=== PATIENT | female | born 1980 | race African-American/Black ===

== ENCOUNTER 2018-04-08 09:01 | Emergency (ER) | payer BC ==
[2018-04-08] MEDS ORDERED: HYDROCODONE/APAP 10/325 TAB ONE (09:47)
[2018-04-08 12:24] LABS: Urine Blood NEGATIVE (NEG); Urine Glucose NEGATIVE (NEG); Urine Protein NEGATIVE (NEG)
--- NOTE | 2018-04-08 12:24 | RAD REPORT ---
EXAM DESCRIPTION: RAD - Lumbar Spine 3 Views - 04/08/2018 11:30 am CLINICAL HISTORY: fall;Pain Radiculopathy COMPARISON: No comparisons FINDINGS: Vertebral body heights appear maintained. No compression fracture noted. Disc spaces are m aintained. No spondylolysis or spondylolisthesis. IMPRESSION: Negative study.
--- NOTE | 2018-04-08 12:25 | RAD REPORT ---
EXAM DESCRIPTION: RAD - Sacrum And Coccyx - 04/08/2018 11:28 am CLINICAL HISTORY: fall;Pain COMPARISON: Lumbar Spine 3 Views dated 04/08/2018 FINDINGS: Slight cortical regularity seen in the inferior most aspect of the sacrum, suspicious for a fracture. Displacement is minimal. No aggressive bone lesion. IMPRESSION: Minimally displaced inferior sacral fracture suspected.
--- NOTE | 2018-04-08 12:28 | EDPHYS ---
Physician Documentation [facility] Name: Vernon Rodgers Age: 38 yrs Sex: Female : 1980 Arrival Date: 04/08/2018 Time: 09:04 Bed 10 Private MD: ED Physician Steve Arguello HPI: 04/08 10:00 This 38 yrs old Black Female presents to ER via Ambulatory with complaints of Fall pm1 Injury. 10:00 Details of fall: The patient fell from an upright position, while walking. Onset: The pm1 symptoms/episode began/occurred this morning. Associated injuries: The patient sustained coccyx, pain. Severity of symptoms: in the emergency department the symptoms are unchanged. The patient has not experienced similar symptoms in the past. Patient walking down stairs and slipped, landing on buttocks. presenting with pain to coccyx and sacral area. No headache, head injury, or neck pain. 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 - Social history:: Smoking status: Patient uses tobacco products, smokes one-half pack cigarettes per day, Patient/guardian denies using alcohol. - Immunization history: Last tetanus immunization: - up to date. - Ebola Screening: : Patient negative for fever greater than or equal to 101.5 degrees Fahrenheit, and additional compatible Ebola Virus Disease symptoms Patient denies exposure to infectious person Patient denies travel to an Ebola-affected area in the 21 days before illness onset. ROS: 10:00 Constitutional: Negative for fever, chills, and weight loss, Eyes: Negative for injury, pm1 pain, redness, and discharge, ENT: Negative for injury, pain, and discharge, Neck: Negative for injury, pain, and swelling, Cardiovascular: Negative for chest pain, palpitations, and edema, Respiratory: Negative for shortness of breath, cough, wheezing, and pleuritic chest pain, Abdomen/GI: Negative for abdominal pain, nausea, vomiting, diarrhea, and constipation. 10:00 : Negative for injury, bleeding, discharge, and swelling, MS/Extremity: Negative for injury and deformity, Skin: Negative for injury, rash, and discoloration, Neuro: Negative for headache, weakness, numbness, tingling, and seizure. 10:00 Back: Positive for of the sacrum. Exam: 10:00 Constitutional: This is a well developed, well nourished patient who is awake, alert, pm1 and in no acute distress. Head/Face: Normocephalic, atraumatic. Eyes: Pupils equal round and reactive to light, extra-ocular motions intact. Lids and lashes normal. Conjunctiva and sclera are non-icteric and not injected. Cornea within normal limits. Periorbital areas with no swelling, redness, or edema. ENT: Nares patent. No nasal discharge, no septal abnormalities noted. Tympanic membranes are normal and external auditory canals are clear. Oropharynx with no redness, swelling, or masses, exudates, or evidence of obstruction, uvula midline. Mucous membranes moist. Neck: Trachea midline, no thyromegaly or masses palpated, and no cervical lymphadenopathy. Supple, full range of motion without nuchal rigidity, or vertebral point tenderness. No Meningismus. Chest/axilla: Normal chest wall appearance and motion. Nontender with no deformity. No lesions are appreciated. Cardiovascular: Regular rate and rhythm with a normal S1 and S2. No gallops, murmurs, or rubs. Normal PMI, no JVD. No pulse deficits. Respiratory: Lungs have equal breath sounds bilaterally, clear to auscultation and percussion. No rales, rhonchi or wheezes noted. No increased work of breathing, no retractions or nasal flaring. Abdomen/GI: Soft, non-tender, with normal bowel sounds. No distension or tympany. No guarding or rebound. No evidence of tenderness throughout. 10:00 Skin: Warm, dry with normal turgor. Normal color with no rashes, no lesions, and no evidence of cellulitis. MS/ Extremity: Pulses equal, no cyanosis. Neurovascular intact. Full, normal range of motion. 10:00 Back: pain, that is mild, of the sacrum, ROM is normal, normal spinal alignment noted. 10:00 Neuro: Orientation: is normal, Motor: moves all fours. Vital Signs: 09:18 BP 121 / 81; Pulse 66; Resp 18; Temp 97.9(TE); Pulse Ox 100% on R/A; Weight 93.44 kg; hj Height 5 ft. 5 in. (165.10 cm); Pain 10/; 09:22 BP 120 / 80; Pulse 66; Resp 18; Temp 97.9(TE); Pulse Ox 100% on R/A; Weight 93.44 kg; hj Height 5 ft. 5 in. (165.10 cm); Pain 10/10; 12:59 BP 121 / 85; Pulse 67; Resp 18; Pulse Ox 100% on R/A; hj 09:22 Body Mass Index 34.28 (93.44 kg, 165.10 cm) [place] Coma Score: 09:18 Eye Response: spontaneous(4). Verbal Response: oriented(5). Motor Response: obeys hj commands(6). Total: 15. Trauma Score (Adult): 09:18 Eye Response: spontaneous(1); Verbal Response: oriented(1); Motor Response: obeys hj commands(2); Systolic BP: > 89 mm Hg(4); Respiratory Rate: 10 to 29 per min(4); [place] Score: 15; Trauma Score: 12 MDM: 09:35 Patient medically screened. pm1 12:26 Data reviewed: vital signs. Data interpreted: Pulse oximetry: on room air is 100 %. pm1 Interpretation: normal. Counseling: I had a detailed discussion with the patient and/or guardian regarding: the historical points, exam findings, and any diagnostic results supporting the discharge/admit diagnosis, radiology results, the need for outpatient follow up, to return to the emergency department if symptoms worsen or persist or if there are any questions or concerns that arise at home. 04/08 10:46 Order name: Urine Dipstick--Ancillary (enter results); Complete Time: 12:25 iw 04/08 10:46 Order name: Urine --Ancillary (enter results); Complete Time: 12:25 iw 04/08 09:40 Order name: Lumbar Spine (3 Views) XRAY; Complete Time: 12:25 pm1 04/08 09:40 Order name: Sacrum And Coccyx XRAY; Complete Time: 12:26 pm1 04/08 10:35 Order name: Urine Dipstick-Ancillary (obtain specimen); Complete Time: 10:42 pm1 04/08 10:35 Order name: Urine Test (obtain specimen); Complete Time: 10:42 pm1 Administered Medications: 09:40 Drug: [place] 10 mg-325 mg 1 tabs Route: PO; hj 09:47 Follow up: Response: No adverse reaction; Pain is decreased hj Disposition: 04/09 06:51 Co-signature as Attending Physician, Steve Arguello MD I agree with the assessment and laura plan of care. Disposition: 04/08/18 12:27 Discharged to Home. Impression: Fracture of sacrum. - Condition is Stable. - Discharge Instructions: Tailbone Injury. - Prescriptions for Tylenol- Codeine #3 300-30 mg Oral Tablet - take 2 tablets by ORAL route every 6 hours As needed; 20 tablet. - Work release form, Medication Reconciliation Form, Thank You Letter, Prescription Opioid Use form. - Follow up: Emergency Department; When: As needed; Reason: Worsening of condition. Follow up: Private Physician; When: 2 - 3 days; Reason: Recheck today's complaints, Continuance of care, Re-evaluation by your physician. - Problem is new. - Symptoms have improved. Signatures: Dispatcher [employer] EDSteve Stovall MD MD cha Joaquin, Henry, RN RN Raj Malin, MEAGHAN MUTUAL FUND MANAGER pm1 Corrections: (The following items were deleted from the chart) 04/08 13:00 12:27 04/08/2018 12:27 Discharged to Home. Impression: Fracture of sacrum. Condition is hj Stable. Forms are Medication Reconciliation Form, Thank You Letter, Antibiotic Education, Prescription Opioid Use. Follow up: Emergency Department; When: As needed; Reason: Worsening of condition. Follow up: Private Physician; When: 2 - 3 days; Reason: Recheck today's complaints, Continuance of care, Re-evaluation by your physician. Problem is new. Symptoms have improved. pm1
--- NOTE | 2018-04-08 12:28 | ER ---
Nurse's Notes [facility] Name: Vernon Rodgers Age: 38 yrs Sex: Female : 1980 Arrival Date: 04/08/2018 Time: 09:04 Bed 10 Private MD: Diagnosis: Fracture of sacrum Presentation: 04/08 09:15 Presenting complaint: Patient states: i fell down from stairs, 3 steps, and hurt my lower back and tail bone area denies hitting head and LOC; pain is 9/10;. Transition of care: patient was not received from another setting of care. Onset of symptoms was April 08, 2018. Risk Assessment: Do you want to hurt yourself or someone else? Patient reports no desire to harm self or others. Initial Sepsis Screen: Does the patient meet any 2 criteria? No. Patient's initial sepsis screen is negative. Does the patient have a suspected source of infection? No. Patient's initial sepsis screen is negative. Care prior to arrival: None. 09:15 Method Of Arrival: Ambulatory 09:15 Acuity: ULISES 4 09:21 Mechanism of Injury: Fall down 3 steps. Trauma event details: Injury occurred in the [facility], Injury occurred: at home. Injury occurred: April 08, 2018 Injury occurred at: 06:00. Triage Assessment: 09:17 General: Appears in no apparent distress. uncomfortable, Behavior is calm, cooperative, hj appropriate for age. Pain: Complains of pain in gluteal cleft, left lower back and right lower back. 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 - Social history:: Smoking status: Patient uses tobacco products, smokes one-half pack cigarettes per day, Patient/guardian denies using alcohol. - Immunization history: Last tetanus immunization: - up to date. - Ebola Screening: : Patient negative for fever greater than or equal to 101.5 degrees Fahrenheit, and additional compatible Ebola Virus Disease symptoms Patient denies exposure to infectious person Patient denies travel to an Ebola-affected area in the 21 days before illness onset. Screenin:18 Abuse screen: Denies threats or abuse. Denies injuries from another. Nutritional hj screening: No deficits noted. Tuberculosis screening: No symptoms or risk factors identified. Fall Risk None identified. Primary Survey: 09:18 A: Airway: patent, No supplemental oxygen in use on arrival. Oral cavity: clear, gag hj reflex present, Trachea midline. Breathing/Chest: Respiratory pattern: regular, Respiratory effort: spontaneous, unlabored, Breath sounds: clear, bilaterally. Chest inspection: symmetrical rise and fall of the chest. Circulation: Cardiac rhythm: sinus rhythm Heart tones present. Pulses: palpable right radial artery and left radial artery. Skin color: pink, Skin temperature: warm, dry. Disability Alert. 09:21 Reassessment Airway Airway Patent Oxygen No O2 Oral cavity Clear +Gag reflex Trachea hj Midline Breathing/Chest Respiratory pattern Regular Respiratory effort Spontaneous Unlabored Breath sounds Clear Chest inspection Symmetrical Circulation Heart rhythm Sinus rhythm Heart tones Present Pulses Palpable Color [place] Temperature Warm Dry Disability Alert. Secondary Survey: 09:47 HEENT: No deficits noted. Gastrointestinal: No deficits noted. : No signs and/or hj symptoms were reported regarding the genitourinary system. Musculoskeletal: Reports pain in buttocks and right lower back and left lower back and gluteal cleft. Injury Description: fall. Assessment: 09:48 Reassessment: see triage for assessment;. hj 09:48 Reassessment: provided with warm blanket for comfort;. hj 10:45 Reassessment: UPT negative, fire range technician notified;. hj 10:45 Reassessment: Patient appears in no apparent distress at this time. Patient and/or iw family updated on plan of care and expected duration. Pain level reassessed. Patient is alert, oriented x 3, equal unlabored respirations, skin warm/dry/pink. Vital Signs: 09:18 BP 121 / 81; Pulse 66; Resp 18; Temp 97.9(TE); Pulse Ox 100% on R/A; Weight 93.44 kg; hj Height 5 ft. 5 in. (165.10 cm); Pain 10/10; 09:22 BP 120 / 80; Pulse 66; Resp 18; Temp 97.9(TE); Pulse Ox 100% on R/A; Weight 93.44 kg; hj Height 5 ft. 5 in. (165.10 cm); Pain 10/10; 12:59 BP 121 / 85; Pulse 67; Resp 18; Pulse Ox 100% on R/A; hj 09:22 Body Mass Index 34.28 (93.44 kg, 165.10 cm) hj [place] Coma Score: 09:18 Eye Response: spontaneous(4). Verbal Response: oriented(5). Motor Response: obeys hj commands(6). Total: 15. Trauma Score (Adult): 09:18 Eye Response: spontaneous(1); Verbal Response: oriented(1); Motor Response: obeys hj commands(2); Systolic BP: > 89 mm Hg(4); Respiratory Rate: 10 to 29 per min(4); [place] Score: 15; Trauma Score: 12 ED Course: 09:04 Patient arrived in ED. rg4 09:17 Triage completed. hj 09:21 Arm band placed on right wrist. hj 09:21 Patient maintains SpO2 saturation greater than 95% on room air. hj 09:22 Thermoregulation: warm blanket given to patient. hj 09:23 Patient has correct armband on for positive identification. Bed in low position. Call hj light in reach. Side rails up X 1. 09:25 Raj Fox NP is PHCP. pm1 09:25 Steve Arguello MD is Attending Physician. pm1 09:40 Tavo Corrales RN is Primary Nurse. hj 10:13 Radiology exam delayed due to test not completed at this time. jr1 11:25 X-ray completed. Patient tolerated procedure well. Patient moved to radiology via 1 wheelchair. Patient moved back from radiology. 11:26 Lumbar Spine (3 Views) XRAY In Process Unspecified. EDMS 11:26 Sacrum And Coccyx XRAY In Process Unspecified. EDMS 12:59 No provider procedures requiring assistance completed. Patient did not have IV access hj during this emergency room visit. Administered Medications: 09:40 Drug: [place] 10 mg-325 mg 1 tabs Route: PO; hj 09:47 Follow up: Response: No adverse reaction; Pain is decreased hj Intake: 09:18 PO: 0ml; Total: 0ml. hj Output: 09:18 Urine: 0ml; Total: 0ml. hj Outcome: 12:27 Discharge ordered by . pm1 12:59 Discharged to home ambulatory. hj 12:59 Condition: stable 12:59 Discharge instructions given to patient, family, Instructed on discharge instructions, follow up and referral plans. medication usage, Demonstrated understanding of instructions, follow-up care, medications, Prescriptions given X 1. 13:00 Patient left the ED. hj Signatures: Dispatcher [employer] EDMS Dneisse Stewart 1 Keyona Lopez 1 Savana Ochoa RN RN Tavo Corrales RN RN Raj Fox NP REPRODUCTION ORDER PROCESSOR pm1 Andra Martins rg4 Corrections: (The following items were deleted from the chart) 09:22 09:18 Pulse 66bpm; Resp 18bpm; Pulse Ox 100% RA; Temp 97.9F Temporal; 93.44 kg; Height hj 5 ft. 5 in.; BMI: 34.2; Pain 10/10; hj
== END 2018-04-08 13:00 | disposition home or self-care (01) ==
LOC: ER 09:01
DX: S32.10XA Unspecified fracture of sacrum, initial encounter for closed fracture (principal); W18.30XA Fall on same level, unspecified, initial encounter; Y93.01 Activity, walking, marching and hiking; Y92.9 Unspecified place or not applicable; F17.210 Nicotine dependence, cigarettes, uncomplicated
CPT/HCPCS: 72100; 72220; 81003; 81025; 99284

== ENCOUNTER 2021-01-08 06:42 | Emergency (ER) | payer BC, OTHER ==
[2021-01-08 07:04] LABS: Urine Blood 1+ (Negative); Urine Glucose Negative (Negative); Urine Protein Negative (Negative); Urine Specific Gravity >=1.030 (1.005-1.030)
[2021-01-08 07:33] LABS: Urine Bacteria <20 /HPF (<20)
[2021-01-08 07:46] LABS: Absolute Lymphocytes (CBC) 3.1 K/uL (0.7-4.9); Basophils % 0.7 % (0-1.3); Hematocrit 34.5 % (36.0-45.0); Lymphocytes % 34.1 % (15.3-44.8); RBC Red Blood Cell Count 4.47 M/uL (3.86-4.86)
[2021-01-08 08:11] LABS: BUN Blood Urea Nitrogen 7 mg/dL (7-18); Bicarbonate 20 mmol/L (21-32); Glucose Level 117 mg/dL (74-106); HCG, Quantitative 33627 mIU/mL (1-3); Potassium 3.8 mmol/L (3.5-5.1); Sodium Level 140 mmol/L (136-145)
--- NOTE | 2021-01-08 08:17 | ER ---
Nurse's Notes [facility] Name: Vernon Rodgers Age: 40 yrs Sex: Female : 1980 Arrival Date: 01/08/2021 Time: 06:47 Bed 6 Private MD: Diagnosis: Other specified abnormal uterine and vaginal bleeding;Threatened Presentation: 01/08 06:55 Chief complaint: Patient states: vaginal bleeding that began yesterday afternoon after lp1 intercourse, patient reports some blood clots; Reports continued bleeding this morning, noticed when wiping; Reports some pelvic pain and low back pain. Coronavirus screen: Client denies travel out of the [place] in the last 14 days. At this time, the client does not indicate any symptoms associated with coronavirus-19. Ebola Screen: No symptoms or risks identified at this time. Initial Sepsis Screen: Does the patient meet any 2 criteria? No. Patient's initial sepsis screen is negative. Does the patient have a suspected source of infection? No. Patient's initial sepsis screen is negative. Risk Assessment: Do you want to hurt yourself or someone else? Patient reports no desire to harm self or others. Onset of symptoms was January 07, 2021. 06:55 Method Of Arrival: Ambulatory lp1 06:55 Acuity: ULISES 3 lp1 Triage Assessment: 06:59 General: Appears in no apparent distress. Behavior is calm, cooperative. Pain: lp1 Complains of pain in suprapubic area. GI: Abdomen is non-distended. 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 - Social history:: Smoking status: Patient denies any tobacco usage or history of. - Family history:: not pertinent. - Hospitalizations: : No recent hospitalization is reported. Screenin:58 Abuse screen: Denies threats or abuse. Denies injuries from another. Nutritional lp1 screening: No deficits noted. Tuberculosis screening: No symptoms or risk factors identified. Fall Risk None identified. Assessment: 07:00 Reassessment: RECD REPORT FROM YVONNE WISE. 40YO BF P/W LOWER ABDOMINAL PAIN AND VAGINAL bp BLEEDING, 12 WK . 08:35 Reassessment: PT D/C HOME AMBULATORY, DX WITH ABNORMAL VAGINAL BLEEDING AND THREATENED bp MISCARRIAGE. Vital Signs: 06:55 BP 132 / 90; Pulse 95; Resp 16; Temp 98.4(O); Pulse Ox 100% on R/A; Weight 90.26 kg lp1 (R); Height 5 ft. 5 in. (165.10 cm); Pain 5/10; 08:35 BP 131 / 85; Pulse 91; Resp 19; Pulse Ox 99% ; bp 06:55 Body Mass Index 33.11 (90.26 kg, 165.10 cm) lp1 ED Course: 06:47 Patient arrived in ED. bp1 06:54 Jadiel Anderson MD is Attending Physician. rn 06:57 Triage completed. lp1 06:57 Arm band placed on. lp1 06:59 Patient has correct armband on for positive identification. lp1 07:05 Sanket Cartagena, RN is Primary Nurse. bp 07:22 Inserted saline lock: 20 gauge in right forearm, using aseptic technique. Blood bp collected. 08:38 No provider procedures requiring assistance completed. IV discontinued, intact, bp bleeding controlled, No redness/swelling at site. Pressure dressing applied. 08:44 US OB Limited In Process Unspecified. EDMS Administered Medications: No medications were administered Outcome: 08:16 Discharge ordered by . rn 08:38 Discharged to home ambulatory. bp 08:38 Condition: stable 08:38 Discharge instructions given to patient, Instructed on discharge instructions, follow up and referral plans. 08:41 Patient left the ED. bp Signatures: Dispatcher [employer] EDMS Jadiel Anderson MD MD rn Pena, Laura RN RN lp1 Sanket Cartagena, RN RN bp Ayr Donohue bp1
--- NOTE | 2021-01-08 08:17 | EDPHYS ---
Physician Documentation [facility] Name: Vernon Rodgers Age: 40 yrs Sex: Female : 1980 Arrival Date: 01/08/2021 Time: 06:47 Bed 6 Private MD: ED Physician Jadiel Anderson HPI: 01/08 07:16 This 40 yrs old Black Female presents to ER via Ambulatory with complaints of Abdominal rn Pain, Vaginal Bleeding, Back Pain. 07:16 The patient presents with vaginal bleeding that is light. Onset: The symptoms/episode rn began/occurred last night. Modifying factors: The symptoms are alleviated by nothing, the symptoms are aggravated by nothing. Associated signs and symptoms: Pertinent positives: vaginal bleeding, Pertinent negatives: fever, hematuria. Severity of symptoms: At their worst the symptoms were very mild, in the emergency department the symptoms are unchanged. The patient has experienced a previous episode. The patient has been recently seen by a physician:. at approx 12 weeks by u/s presents with vaginal spotting after intercourse last night, mild lower abd cramping. Not having to wear pad or panty liner.. 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 - Social history:: Smoking status: Patient denies any tobacco usage or history of. - Family history:: not pertinent. - Hospitalizations: : No recent hospitalization is reported. ROS: 07:16 Constitutional: Negative for fever, chills, and weight loss, Eyes: Negative for injury, rn pain, redness, and discharge, Neck: Negative for injury, pain, and swelling, Cardiovascular: Negative for chest pain, palpitations, and edema, Respiratory: Negative for shortness of breath, cough, wheezing, and pleuritic chest pain, Abdomen/GI: Negative for nausea, vomiting, diarrhea, and constipation, Back: Negative for injury and pain, : Negative for injury, discharge, and swelling, MS/Extremity: Negative for injury and deformity, Skin: Negative for injury, rash, and discoloration, Neuro: Negative for headache, weakness, numbness, tingling, and seizure. Exam: 07:16 Constitutional: This is a well developed, well nourished patient who is awake, alert, rn and in no acute distress. Head/Face: Normocephalic, atraumatic. Eyes: Periorbital areas with no swelling, redness, or edema. Cardiovascular: Regular rate and rhythm. No pulse deficits. Respiratory: No increased work of breathing, no retractions or nasal flaring. Abdomen/GI: Soft, non-tender Skin: Warm, dry MS/ Extremity: Pulses equal, no cyanosis. Neuro: Awake and alert, GCS 15 Vital Signs: 06:55 BP 132 / 90; Pulse 95; Resp 16; Temp 98.4(O); Pulse Ox 100% on R/A; Weight 90.26 kg lp1 (R); Height 5 ft. 5 in. (165.10 cm); Pain 5/10; 08:35 BP 131 / 85; Pulse 91; Resp 19; Pulse Ox 99% ; bp 06:55 Body Mass Index 33.11 (90.26 kg, 165.10 cm) lp1 MDM: 06:54 Patient medically screened. rn 08:13 Differential diagnosis: urinary tract infection, threatened Ab, bleeding from rn intercourse. Data reviewed: vital signs, nurses notes, lab test result(s), radiologic studies, ultrasound, and as a result, I will discharge patient. Counseling: I had a detailed discussion with the patient and/or guardian regarding: the historical points, exam findings, and any diagnostic results supporting the discharge/admit diagnosis, lab results, radiology results, the need for outpatient follow up, to return to the emergency department if symptoms worsen or persist or if there are any questions or concerns that arise at home. Special discussion: I discussed with the patient/guardian in detail that at this point there is no indication for admission to the hospital. It is understood, however, that if the symptoms persist or worsen the patient needs to return immediately for re-evaluation. ED course: U/S no acute findings, 12w 1d, Rh+, will dc home with OB f/u. . 01/08 07:04 Order name: Urine Dipstick-Ancillary; Complete Time: 08:11 [facility] 01/08 07:04 Order name: Urine Microscopic Only; Complete Time: 08:11 5 01/08 07:07 Order name: Urine --Ancillary (enter results); Complete Time: 08:11 eb 01/08 07:09 Order name: Quantitative Hcg; Complete Time: 08:13 rn 01/08 07:09 Order name: Abo/rh Typing; Complete Time: 08:11 rn 01/08 07:09 Order name: Basic Metabolic Panel; Complete Time: 08:13 rn 01/08 07:04 Order name: Urine Dipstick-Ancillary (obtain specimen); Complete Time: 07:04 5 01/08 07:04 Order name: Urine Test (obtain specimen); Complete Time: 07:04 [facility] 01/08 07:09 Order name: CBC with Diff; Complete Time: 08:11 01/08 07:09 Order name: IV Saline Lock; Complete Time: 07:22 rn 01/08 07:09 Order name: Labs collected and sent; Complete Time: 07: rn 01/08 07:09 Order name: OB Limited rn Administered Medications: No medications were administered Disposition: 01/08/21 08:16 Discharged to Home. Impression: Other specified abnormal uterine and vaginal bleeding, Threatened . - Condition is Stable. - Discharge Instructions: Threatened Miscarriage, Vaginal Bleeding During , First Trimester, Vaginal Bleeding During , Second Trimester, Pelvic Rest. - Medication Reconciliation Form, Thank You Letter, Antibiotic Education, Prescription Opioid Use form. - Follow up: Private Physician; When: As needed; Reason: Recheck today's complaints, Re-evaluation by your physician. - Problem is new. - Symptoms have improved. Signatures: Dispatcher [employer] [facility] Jadiel Anderson MD MD rn Pena, Laura, RN RN lp1 Sanket Cartagena RN RN Harshal Escoto, RN RN [id number] Corrections: (The following items were deleted from the chart) 08:41 08:16 01/08/2021 08:16 Discharged to Home. Impression: Other specified abnormal uterine bp and vaginal bleeding; Threatened . Condition is Stable. Forms are Medication Reconciliation Form, Thank You Letter, Antibiotic Education, Prescription Opioid Use. Follow up: Private Physician; When: As needed; Reason: Recheck today's complaints, Re-evaluation by your physician. Problem is new. Symptoms have improved. rn
[2021-01-08 08:50] VITALS: TEMP 98.4
[2021-01-08 08:51] VITALS: BP 131/85; O2SAT 99
--- NOTE | 2021-01-08 10:54 | RAD REPORT ---
EXAM DESCRIPTION: US - OB Limited - 01/08/2021 8:44 am CLINICAL HISTORY: Abd cramping, ;Vaginal bleeding Early . COMPARISON: No comparisons FINDINGS: A single gestational sac is seen within the uterus. The shape of the sac is within normal limits for gestational age. Within the sac is a single pole with crown-rump length of 6.9 cm, correlating to estimated gestational age of 13 weeks 1 day. Estimated date of delivery is 07/05/2021. Heart rate is 158 BPM. Placenta appears to be forming anteriorly. Left ovary was not visualized. The right ovary was normal with normal blood flow. Maternal adnexal ar e normal. Several fibroids are present in the uterus. IMPRESSION: Single live early intrauterine gestation with estimated gestational age of 13 weeks 1 da y, JAYCE 07/05/2021. Multiple uterine fibroids are present.
== END 2021-01-08 08:41 | disposition home or self-care (01) ==
LOC: ER 06:42
DX: O20.0 Threatened abortion (principal); Z3A.12 12 weeks gestation of pregnancy
CPT/HCPCS: 36415; 76815; 80048; 81003; 81015; 81025; 84702; 85025; 86900; 86901; 99283

== ENCOUNTER 2022-09-15 17:02 | Emergency (ER) | payer OTHER ==
--- OUTSIDE RECORDS SUMMARY | 2022-09-15 17:06 | XMS REPORT | Continuity of Care Document ---
:1980 Author Organization [facility] t Address [address] [place] [address] Care Team Providers Name Role Phone JOHNATHON DANIELS Primary Care Physician Unavailable EZRA GUEVARA Attending Clinician Unavailable TRISTAN JUÁREZ Attending Clinician Unavailable GALDINO TAVARES Attending Clinician Unavailable GALDINO TAVARES Attending Clinician Unavailable Ezra Guevara MD Attending Clinician Pob, [facility] Lab Main Attending Clinician Unavailable Only, [facility] Test Attending Clinician Unavailable Doctor Unassigned, [place] Attending Clinician Unavailable Radha Monsivais RN Attending Clinician Unavailable Nurse, [facility] Women's Health Attending Clinician Unavailable Lisbeth Szymanski MD Attending Clinician LISBETH SZYMANSKI Attending Clinician Unavailable Dakota Churchill MD Attending Clinician [facility] Attending Clinician Unavailable Jose Kasper MD Attending Clinician [phone] Ultrasound, [facility] Attending Clinician Unavailable Otilia Watson MD Attending Clinician OTILIA WATSON Attending Clinician Unavailable JOSE KASPER Attending Clinician Unavailable Keya Torres PA-C Attending Clinician KEYA TORRES Attending Clinician Unavailable 2, [facility] Lab Attending Clinician Unavailable Ayana Sainz Attending Clinician [phone] AYANA OSMAN Attending Clinician Unavailable Naren Richmond Attending Clinician Unavailable Socrates Humphreys MD Attending Clinician ALVIN MORRISON Attending Clinician Unavailable Danita Valadez Attending Clinician Unavailable Amaris Camp MD Attending Clinician Res-Colpo/Leep, [facility] Attending Clinician Unavailable Jasson Null MD Attending Clinician 1, [facility] Us Room Attending Clinician Unavailable Yahir Cabrera MD Attending Clinician Lab, [facility] Attending Clinician Unavailable Lab, [facility] Attending Clinician Unavailable EZRA GUEVARA Admitting Clinician Unavailable GALDINO TAVARES Admitting Clinician Unavailable Ezra Guevara MD Admitting Clinician Lisbeth Szymanski MD Admitting Clinician LISBETH SZYMANSKI Admitting Clinician Unavailable Payers Payer Name Policy Type Policy Number Effective Date Expiration Date S matthew [employer] [facility] [id number] 2016 HEALTH 00:00:00 BCBS [facility] [id number] 2022 00:00:00 MEDICAID [facility] [id number] 2019 00:00:00 Problems Condition Condition Condition Status Onset Resolution Last Treating Co mments Source Name Details Category Date Date Treatment Clinician Date S/P LEEP S/P LEEP Disease Active Unive rs of cervix of cervix 4-26 ity of 00:00: [address] Branch S/P LEEP S/P LEEP Disease Active Unive rs of cervix of cervix 4-26 ity of 00:00: [address] Cervical Cervical Disease Active Overview: Un milind high risk high risk 3-24 Formattin i ty of human human 00:00: g of this [place] papillomav papillomav 00 note Me dical irus (HPV) irus (HPV) might be Branch DNA test DNA test different positive positive from the original. Added automatic ally from request for surgery [id number] Obesity Obesity Disease Active Univers (BMI (BMI 9-01 ity of 30-39.9) 30-39.9) 00:00: [address] Pap smear Pap smear Disease Active Overview: Univers of cervix of cervix 6-10 Formattin i ty of with with 00:00: g of this [place] ASCUS, ASCUS, 00 note Medical cannot cannot might be Branch exclude exclude different HGSIL HGSIL from the original. +hpv, pending colpo Allergies, Adverse Reactions, Alerts Allergy Allergy Status Severity Reaction(s) Onset Inactive Treating Comm ents Source Name Type Date Date Clinician NO KNOWN Drug Active Univers ALLERGIE Class ity of S [facility] Social History Social Habit Start Date Stop Date Quantity Comments Source History of tobacco Cigarette Smoker University of use [facility] Exposure to 2022-08-24 2022-09-03 Not sure [facility] SARS-CoV-2 (event) 00:00:00 11:25:00 [facility] Alcohol intake 2022-01-01 2022-01-01 Ex-drinker [facility] 00:00:00 00:00:00 (finding) [facility] Cigarettes smoked 2021-10-17 2021-10-17 Univers ity of current (pack per 00:00:00 00:00:00 [facility] ) - Reported Branch Tobacco use and 2021-10-17 2021-10-17 Smokeless Universit y of exposure 00:00:00 00:00:00 tobacco non-user [facility] Sex Assigned At [birth year] Universit y of 00:00:00 00:00:00 [facility] Smoking Status Start Date Stop Date Source Smokes tobacco daily 2021-10-17 00:00:00 [facility] ity of [facility] Medications Ordered Filled Start Stop Current Ordering Indication Dosage Frequency Signature Comments Components Source Medication Medication Date Date Medication? Clinician (SIG) Name Name NaCl 0.9% 2022- No 1000mL at 999 Uni vers (NS) bolus 2-06 02-06 mL/hr, ity of infusion 18:45: 20:16 1,000 mL, José Miguel as 1,000 mL 00 :00 IV Medical Infusion, Branch ONCE, 1 dose, On 09/03/22 at 1245, REGINA ibuprofen Yes [id number] 600mg Take 1 Univers 600 mg 11-21 9103 tablet by ity of tablet 00:00: mouth [place] 00 every 6 Medical (six) Branch hours as needed for Pain (scale 1-3) or Pain (scale 4-6). acetaminoph Yes [id number] 650mg Take 2 Univers en 11-21 9103 tablets by ity of (TYLENOL) 00:00: mouth [place] 325 mg 00 every 6 Medical tablet (six) Branch hours as needed for Pain (scale 1-3) or Pain (scale 4-6). ibuprofen Yes [id number] 600mg Take 1 Univers 600 mg 11-21 102 tablet by ity of tablet 00:00: mouth [place] 00 every 6 Medical (six) Branch hours as needed for Pain (scale 1-3) or Pain (scale 4-6). acetaminoph Yes [id number] 650mg Take 2 Univers en 11-21 102 tablets by ity of (TYLENOL) 00:00: mouth [place] 325 mg 00 every 6 Medical tablet (six) Branch hours as needed for Pain (scale 1-3) or Pain (scale 4-6). PNV 67-iron 2020-07 Yes 1{capsu Take 1 U nivers ps-folate 2-20 le} capsule by ity of no.1-dha 00:00: mouth [place] (VITAFOL 00 daily. Medical ULTRA) 29 Branch mg iron- 1 mg-200 mg Cap PNV 67-iron 2020-07 Yes 1{capsu Take 1 U nivers ps-folate 2-20 le} capsule by ity of no.1-dha 00:00: mouth [place] (VITAFOL 00 daily. Medical ULTRA) 29 Branch mg iron- 1 mg-200 mg Cap Vital Signs Vital Name Observation Time Observation Value Comments Source Heart rate 2022-09-03 22:36:00 97 /min [facility] [place] [facility] Respiratory rate 2022-09-03 22:36:00 18 /min [facility] Systolic blood 2022-09-03 22:20:06 131 mm[Hg] [facility] s[facility] pressure [facility] Diastolic blood 2022-09-03 22:20:06 82 mm[Hg] [facility] Oxygen saturation in 2022-09-03 22:20:06 97 /min [facility] Arterial blood by [facility] Pulse oximetry Branch Body temperature 2022-09-03 17:26:00 37.06 [facility] Body height 2022-09-03 17:26:00 165.1 cm Universi [facility] Body weight 2022-09-03 17:26:00 95.255 kg Universi [facility] BMI 2022-09-03 17:26:00 34.95 kg/m2 Universi [facility] Systolic blood 2022-01-01 13:46:00 134 mm[Hg] Univer sity of pressure [facility] Diastolic blood 2022-01-01 13:46:00 87 mm[Hg] Unive rsity of [facility] Heart rate 2022-01-01 13:46:00 69 /min [facility] Body temperature 2022-01-01 13:46:00 37.06 [facility] Body height 2022-01-01 13:46:00 165.1 cm Universi [facility] Body weight 2022-01-01 13:46:00 89.812 kg [facility] BMI 2022-01-01 13:46:00 32.95 kg/m2 [facility] Procedures Procedure Date / Time Performing Clinician Source Performed EKG-12 LEAD 2022-09-03 22:19:39 Bharati Montalvo [facility] CBC WITH DIFF 2022-09-03 18:28:00 Bharati Montalvo [facility] URINALYSIS 2022-09-03 18:28:00 Bharati Montalvo [facility] EXTRA TUBE ORANGE 2022-09-03 18:28:00 Galdino Tavares [facility] URINE DRUG (IMMUNOASSAY) 2022-09-03 18:28:00 Bharati Montalvo [facility] DRUG Medical [facility] SCREEN W/O REFLEX Encounters Start End Encounter Admission Attending Care Care Encounter Source Date/Time Date/Time Type Type Clinicians Facility Department ID 2021-10-24 Outpatient R EZRA GUEVARA [facility] 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 [id number] Univers 09:39:02 ity [facility] 2021-07-24 Outpatient P RUST SAI [id number] Univers 15:40:36 ity of [facility] 2022-09-03 2022-09-03 Emergency X GALDINO TAVARES RUST ERT 1 [id number] Univers 11:26:00 16:38:00 GALDINO TAVARES ity of [facility] 2022-09-03 2022-09-03 Emergency Anusha, TRAUMA [id number] Univers 11:26:00 16:38:00 [facility] [id number] it [id number] [id number] [address] 2022-01-01 2022-01-01 [facility] 1.2.800.056 [id number] Univers 08:30:00 09:16:52 Visit Cam [place] [id number] i ty of [place] [id number] Wy dical [facility]LY [facility] [address] [facility] 2022-01-01 2022-01-01 Outpatient R ISMAEL [facility] [id number] Univers 08:30:00 09:16:52 ity of [facility] 2022-01-01 2022-01-01 Outpatient R ISMAEL [facility] [id number] Univers 08:30:00 08:30:00 ity of [facility] 2021-11-21 2021-11-21 Outpatient R ISMAEL [facility]L [facility] 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 [id number] Univers 06:37:00 10:45:00 ity of [facility] 2021-11-21 2021-11-21 [facility] 1.2.840.114 [id number] Univers 06:37:00 10:45:00 Encounter [place] [id number] ity of [facility] [id number] SURGICAL [id number] [facility] [address] [place] 2021-11-21 2021-11-21 Surgery Ismael [facility] 1.2.873.094 [id number] Univers 07:45:00 10:30:00 Cam [place] 350.1.13.10 i ty of [place] 4.2.7.2.[place] SURGICAL [id number] [facility] 020 Branch 2021-11-20 2021-11-20 Filtration Plant Operator Caro, [facility] Lab Main RUST 1.2.8 40.114 [id number] Univers 12:15:00 12:30:00 Visit Ezra Guevara 350.1.13.10 ity [facility] 4.2.7.2.[place] [id number] Wy dical NAL [address] [facility] 2021-11-20 2021-11-20 Outpatient R EZRA GUEVARA [facility] [id number] Univers 12:15:00 12:15:00 ity of [facility] 2021-11-20 2021-11-20 Laboratory Only, Adc Test RUST 1.2.840. 114 [id number] Univers 10:15:00 10:30:00 Only Ezra Guevara 350.1.13.10 ity of [place] 4.2.7.2.[place] [id number] [facility] [address] [place] 2021-11-20 2021-11-20 Orders Doctor FISH 1.2.840.114 [id number] Univers 00:00:00 00:00:00 Only Unassigned, ALEIDA 350.1.13.10 ity of [place] [facility] 4.2.7.2.686 José Miguel as [id number] [facility] 009 Branch 2021-11-15 2021-11-15 Patient Yodit [facility] 1.2.641.739 [id number] Univers 00:00:00 00:00:00 Secure Msg Radha [place] [id number] ity of [place] [facility] [id number] [facility] 134 Branch 2021-11-15 2021-11-15 Telephone Ezra Guevara RUST 1.2.840.114 [id number] Univers 00:00:00 00:00:00 Chilo ASH 350.1.13.10 i ty of [place] 4.2.7.2.[place] [id number] Wy dical NAL [address] [facility] 2021-10-30 2021-10-30 Telephone Ezra Guevara 1.2.840.114 [id number] Univers 00:00:00 00:00:00 Cam [place] 350.1.13.10 i ty of [place] 4.2.7.2.[place] [id number] Wy dical NAL [address] [place] [address] 2021-10-27 2021-10-27 Telephone Ezra Guevara 1.2.840.114 [id number] Univers 00:00:00 00:00:00 [place] 350.1.13.10 i ty of [place] 4.2.7.2.[place] [id number] Wy dical NAL [address] [place] [address] 2021-10-18 2021-10-18 Prep For Ezra Guevara ILWARREN 1.2.840.114 [id number] Univers 00:00:00 00:00:00 Surgery Cam [place] 350.1.13.10 i ty of [place] 4[place]2.7.2.[place] [id number] Wy dical NAL [address] [place] [address] 2021-10-17 2021-10-17 Office Ezra Guevara ILWARREN 1.2.190.725 [id number] Univers 14:00:00 15:20:53 Visit Cam [place] 350.1.13.10 i ty of [place] 4.2.7.2.[place] [id number] Wy dic[address] 2021-10-17 2021-10-17 Outpatient R EZRA GUEVARA [facility] [id number] Univers 14:00:00 15:20:53 ity [facility] 2021-10-17 2021-10-17 Outpatient R EZRA GUEVARA [facility] [id number] Univers 14:00:00 14:00:00 ity [facility] 2021-10-17 2021-10-17 Outpatient R EZRA GUEVARA [facility] [id number] Univers 14:00:00 14:00:00 ity [facility] 2021-09-27 2021-09-27 Outpatient R EZRA GUEVARA [facility] [id number] Univers 09:30:00 10:11:59 ity [facility] 2021-09-27 2021-09-27 Office Ismael Ezra RUST 1.2.355.878 [id number] Univers 09:30:00 10:11:59 Visit Cam [place] 350.1.13.10 i ty of [place] 4.2.7.2.[place] [id number] Wy dic[address] 2021-09-27 2021-09-27 Outpatient R ISMAEL EZRA [facility] [id number] Univers 09:30:00 10:11:59 ity of [facility] 2021-09-20 2021-09-20 [facility] 1.2.081.036 [id number] Univers 09:00:00 10:24:51 Visit Chilo ASH 350.1.13.10 i ty of [place] 4.2.7.2.[place] [id number] Wy dic[address] 2021-09-20 2021-09-20 Outpatient R EZRA GUEVARA [facility] [id number] Univers 09:00:00 10:24:51 ity of [facility] 2021-09-20 2021-09-20 Outpatient [facility] [id number] Univers 09:00:00 09:00:00 ity of [facility] 2021-09-20 2021-09-20 Orders Doctor WHITTEN 1.2.840.114 [id number] Univers 00:00:00 00:00:00 Only Unassigned, ALEIDA 350.1.13.10 ity of [place] [facility] 4.2.7.2.686 José Miguel as [id number] [address] 2021-08-23 2021-08-23 Outpatient R ISMAEL EZRA [facility] [id number] Univers 15:45:00 16:23:41 ity of [facility] 2021-08-23 2021-08-23 Routine Ismael Ezra RUST 1.2.248.748 [id number] Univers 15:45:00 16:23:41 [place] 350.1.13.10 ity of Visit [place] 4.2.7.2.[place] [id number] Wy dical NAL [address] [facility] 2021-07-24 2021-07-25 Outpatient P EZRA GUEVARA [facility]UST SAI [id number] Univers 17:13:00 23:20:00 ity of [facility] 2021-07-24 2021-07-25 [facility] Ezra Guevara RUST 1.2.840.114 [id number] Univers 17:13:00 23:20:00 Encounter Chilo ASH 350.1.13.10 ity of [facility] 4.2.7.2.[place] [id number] [address] 2021-07-24 2021-07-24 Nurse Nurse, [facility] 1.2.840.114 [id number] Univers 14:30:00 14:45:00 Visit Ezra Guevara NILSA 350.1.13.10 ity of [facility] 4.2.7.2.[place] [id number] Wy dical NAL [address] [place] [address] 2021-07-24 2021-07-24 Outpatient R EZRA GUEVARA [facility] [id number] Univers 14:30:00 14:30:00 ity of [facility] 2021-07-17 2021-07-17 Refill Ezra Guevara [facility] 1.2.522.105 [id number] Univers 00:00:00 00:00:00 Cam NILSA 350.1.13.10 i ty of [facility] 4.2.7.2.[place] [id number] Wy dical NAL [address] [place] [address] 2021-07-11 2021-07-13 [facility] Ezra Guevara RUST 1.2.840.114 [id number] Univers 15:39:00 13:45:00 Encounter Lisbeth Szymanski 350.1.13.10 ity [place] 4.2.7.2.[place] C[place] [id number] [address] 2021-07-11 2021-07-13 Inpatient P JUAN A RUST SAI [id number] Univers 15:39:00 13:45:00 LISBETH itprema [facility] 2021-07-13 2021-07-13 Outpatient R [facility] [id number] Univers 10:00:00 10:00:00 ity of [facility] 2021-07-11 2021-07-12 Anesthesia Kerline RUST 1.2.840.114 [id number] Univers 23:55:00 04:25:00 Event Dakota Jarquin NILSA 350.1.13.10 ity of [place] 4.2.7.2.[place] [id number] [facility] [address] [place] 2021-07-11 2021-07-11 Telephone Ezra Guevara RUST 1.2.840.114 [id number] Univers 00:00:00 00:00:00 Chilo ASH 350.1.13.10 i ty of [place] 4.2.7.2.[place] [id number] Wy dical NAL [address] [facility] 2021-07-11 2021-07-11 Orders Doctor FISH 1.2.840.114 [id number] Univers 00:00:00 00:00:00 Only Unassigned, ALEIDA 350.1.13.10 ity of [place] [facility] 4.2.7.2.686 José Miguel as [id number] [facility] [address] [place] 2021-07-10 2021-07-10 Routine Room, [facility] 1.2.840.1 [id number] Univers 10:11:36 11:01:40 Stacy Guevaraloretta ASH 350.1.13.10 ity of Visit [place] 4.2.7.2.[place] [id number] Wy dical NAL [address] [facility] 2021-07-10 2021-07-10 Outpatient R EZRA GUEVARA [facility] [id number] Univers 10:00:00 11:01:40 ity of [facility] 2021-07-06 2021-07-06 Outpatient R EZRA GUEVARA [facility] [id number] Univers 13:00:00 11:55:50 ity of [facility] 2021-07-06 2021-07-06 Routine Room, [facility] 1.2.840.1 14 [id number] Univers 10:59:07 11:55:50 Ezra Guevara NILSA 350.1.13.10 ity of [facility] 4.2.7.2.[place] [id number] Wy dical NAL [address] [place] [address] 2021-07-03 2021-07-03 Routine Room, [facility] 1.2.840.1 14 [id number] Univers 10:04:23 10:56:47 Ezra Guevara NILSA 350.1.13.10 ity of Visit [place] 4.2.7.2.686 [place] PROFESS[place] [id number] Wy dical NAL [address] [place] [address] 2021-07-03 2021-07-03 Outpatient R EZRA GUEVARA [facility] [id number] Univers 10:00:00 10:56:47 ity of [facility] 2021-06-29 2021-06-29 Routine Room, [facility] 1.2.840.1 14 [id number] Univers 09:48:44 10:03:44 Jose Kasper 350. 1.13.10 ity of Visit IsmaelStacyloretta [place]OWE[place] 4.2.7.2.686 [place] PROFESSIO [id number] Wy dic[address] 2021-06-29 2021-06-29 Filtration Plant Operator [facility] 1.2 .840.114 [id number] Univers 08:34:47 09:04:47 Visit Jsoe Kasper EDUCATIONAL SPEECH LANGUAGE CLINICIAN 350.1. 13.10 ity of Otilia Watson [facility] 4.2.7.2.686 [place] MATERNAL [id number] Med ical & CHILD [address] [place] [address] 2021-06-29 2021-06-29 Outpatient P ALLAN [facility] [id number] Univers 08:30:00 09:02:36 OTILIA ity [facility] 2021-06-27 2021-06-27 Telephone Ezra Guevara RUST 1.2.840.114 [id number] Univers 00:00:00 00:00:00 Chilo ASH 350.1.13.10 i ty of [place] 4.2.7.2.[place] [id number] Wy dic[address] 2021-06-26 2021-06-26 Outpatient P EZRA GUEVARA [facility] SA[facility] [id number] Univers 11:15:00 15:30:00 ity of [facility] 2021-06-26 2021-06-26 Hospital Ezra Guevara RUST 1.2.840.114 [id number] Univers 11:15:00 15:30:00 Encounter Chilo ASH 350.1.13.10 ity of [place] 4.2.7.2.[place] [id number] [address] 2021-06-26 2021-06-26 Routine Room, [facility] 1.2.840.1 14 [id number] Univers 10:11:09 10:59:33 Ezra GuevaraYURI 350.1.13.10 ity of Visit [place] 4.2.7.2.[place] [id number] [address] 2021-06-26 2021-06-26 Outpatient R EZRA GUEVARA [facility] [id number] Univers 10:00:00 10:59:33 ity of [facility] 2021-06-21 2021-06-21 Routine Room, [facility] 1.2.840.1 14 [id number] Univers 10:06:33 11:41:10 Ezra Guevara NILSA 350.1.13.10 ity of Visit [place] 4.2.7.2.[place] [id number] Wy dic[address] 2021-06-21 2021-06-21 Outpatient R EZRA GUEVARA [facility] [id number] Univers 10:00:00 11:41:10 ity of [facility] 2021-06-20 2021-06-20 Orders Doctor WHITTEN 1.2.840.114 [id number] Univers 00:00:00 00:00:00 Only Unassigned, ALEIDA 350.1.13.10 ity of [place] [facility] 4.2.7.2.686 José Miguel as [id number] [address] 2021-06-19 2021-06-19 Routine Room, [facility] 1.2.840.1 14 [id number] Univers 10:08:27 11:17:51 Ezra Guevara 350.1.13.10 ity of Visit [place] 4.2.7.2.[place] [id number] Wy dical NAL [address] [place] [address] 2021-06-19 2021-06-19 Outpatient R EZRA GUEVARA [facility] [id number] Univers 10:00:00 11:17:51 ity of [facility] 2021-06-16 2021-06-16 Routine Room, [facility] 1.2.840.1 14 [id number] Univers 10:33:36 11:49:40 Ezra Guevara 350.1.13.10 ity of Visit [place] 4.2.7.2.[place] [id number] Wy dical NAL [address] [place] [address] 2021-06-16 2021-06-16 Outpatient R ISMAEL EZRA [facility] [id number] Univers 10:00:00 11:49:40 ity [facility] 2021-06-15 2021-06-15 Outpatient R [facility] [id number] Univers 10:00:00 10:00:00 ity of [facility] 2021-06-12 2021-06-12 Routine Room, [facility] 1.2.840.1 14 [id number] Univers 10:05:56 11:09:21 Ezra Guevara 350.1.13.10 ity of Visit [place] 4.2.7.2.[place] [id number] Wy dical [address] 2021-06-12 2021-06-12 Outpatient R ISMAEL EZRA [facility] [id number] Univers 10:00:00 11:09:21 ity of [facility] 2021-06-08 2021-06-08 Routine Room, [facility] 1.2.840.1 14 [id number] Univers 10:08:59 10:59:47 Ezra Guevara 350.1.13.10 ity of Visit [place] 4.2.7.2.[place] [id number] Wy dic[address] 2021-06-08 2021-06-08 Outpatient R EZRA GUEVARA [facility] [id number] Univers 10:00:00 10:59:47 ity of [facility] 2021-06-05 2021-06-05 Routine Room, [facility] 1.2.840.1 14 [id number] Univers 10:06:11 10:21:11 Ezra Guevara 350.1.13.10 ity of Visit [place] 4.2.[place].2.[place] [id number] [address] 2021-06-05 2021-06-05 Outpatient R ISMAEL [facility] [id number] Univers 10:00:00 10:00:00 ity of [facility] 2021-06-01 2021-06-01 Routine Room, [facility] 1.2.840.1 14 [id number] Univers 10:03:57 10:59:20 Ezra Guevara 350.1.13.10 ity of Visit [place] 4.2.[place].2.[place] [id number] [address] 2021-06-01 2021-06-01 Outpatient R ISMAEL [facility] [id number] Univers 10:00:00 10:59:20 ity of [facility] 2021-06-01 2021-06-01 Outpatient R [facility] [id number] Univers 10:00:00 10:00:00 ity [facility] [facility] 2021-05-31 2021-05-31 Filtration Plant Operator Ultrasound, [facility] 1.2 .840.114 [id number] Univers 09:23:27 09:53:27 Visit Jose Kasper EDUCATIONAL SPEECH LANGUAGE CLINICIAN 350.1. 13.10 ity of REGIONAL 4.2.7.2.686 José Miguel as MATERNAL [phone] Med ical & CHILD [address] [place] [address] 2021-05-31 2021-05-31 Outpatient P MARIA G [facility] [id number] Univers 09:30:00 09:30:00 IDANIAI it y of S GARCIA [facility] 2021-05-29 2021-05-29 Routine Room, [facility] 1.2.840.1 [id number] Univers 10:15:13 11:35:15 Guevara Ezra SAH 350.1.13.10 ity of Visit [place] [phone] Wy dical NAL [address] [place] [address] 2021-05-29 2021-05-29 Outpatient R EZRA GUEVARA [facility] [id number] Univers 10:00:00 11:35:15 ity [facility] 2021-05-29 2021-05-29 Outpatient R [facility] [id number] Univers 10:00:00 10:00:00 ity of [facility] 2021-05-24 2021-05-24 Routine Room, [facility] 1.2.840.1 14 [id number] Univers 10:11:08 11:46:16 Ezra Guevara 350.1.13.10 ity of Visit [place] [phone] Wy dical nal [address] [place] [address] 2021-05-24 2021-05-24 Outpatient R [facility] [id number] Univers 10:00:00 10:00:00 ity [facility] 2021-05-10 2021-05-10 [facility]ine [facility] 1.2.117.782 [id number] Univers 10:32:50 10:47:50 Keya Ash 350.1.13.10 ity of Visit [place] [phone] Wy dical nal [address] [place] [address] 2021-05-10 2021-05-10 [facility] [id number] Univers 10:30:00 10:30:00 KEYA ity [facility] 2021-05-04 2021-05-04 Filtration Plant Operator 2, Adc [facility] 1.2.840.114 [id number] Univers 08:27:25 11:28:02 Visit Ismael Ezra Chilo [place] 350.1.13.10 ity [facility] [place] [phone] Wy dical nal 353 [facility] 2021-05-04 2021-05-04 Outpatient R [facility] [id number] Univers 08:30:00 08:30:00 ity [facility] 2021-05-04 2021-05-04 Case Melissa [facility] 1.2.391.044 [id number] Univers 00:00:00 00:00:00 Management Keya Ash [facility].1.13.10 [facility] [place] [phone] Wy dical nal 134 [facility] 2021-05-04 2021-05-04 Telephone Jermaine [facility] 1.2.840.114 [id number] Univers 00:00:00 00:00:00 Ayana Tejada EDUCATIONAL SPEECH LANGUAGE CLINICIAN 350.1.13.10 ity of [facility] 4.2.7.2.686 José Miguel as MATERNAL [phone] Med ical & CHILD 107 [facility] [place] 2021-05-03 2021-05-03 Filtration Plant Operator Ultrasound, [facility] 1.2 .840.114 [id number] Univers 09:54:46 10:24:46 Visit Jose Kasper EDUCATIONAL SPEECH LANGUAGE CLINICIAN 350.1. 13.10 ity [facility] [id number] José Miguel as MATERNAL [phone] Med ical & CHILD 369 [facility] [place] 2021-05-03 2021-05-03 Outpatient P [facility] [id number] Univers 10:00:00 10:00:00 ity [facility] 2021-04-28 2021-04-28 Telephone Melissa [facility] 1.2.840.114 [id number] Univers 00:00:00 00:00:00 [place] 350.1.13.10 i ty of [place] [phone] Wy dical nal 134 [facility] 2021-04-27 2021-04-27 Routine Ezra Guevara [place] 1.2.261.825 [id number] Univers 11:06:35 11:52:59 Cam [place] 350.1.13.10 ity of Visit [place] 4[place]2.7.2.[place] [phone] Wy dical nal 134 [facility] 2021-04-27 2021-04-27 Outpatient R EZRA GUEVARA [facility] [id number] Univers 11:15:00 11:15:00 ity of [facility] 2021-04-27 2021-04-27 Filtration Plant Operator 2, Adc Lab [facility] 1.2.840.114 [id number] Univers 10:00:02 10:15:02 Visit Ezra Guevara Chilo [place] 350.1.13.10 ity of [place] 4.[place].7.2.[place] [phone] Wy dical nal 353 [facility] 2021-04-27 2021-04-27 Case Ezra Guevara [facility] 1.2.143.701 [id number] Univers 00:00:00 00:00:00 Management Cam [place] 350.1.13.10 ity of [place] 4.2.7.2.[place] [phone] Wy dical nal 134 [facility] 2021-04-10 2021-04-10 Outpatient R AKINSIPE, [facility] [id number] Univers 09:00:00 09:00:00 AYANA ity o f [facility] 2021-04-10 2021-04-10 Outpatient R AKINSIPE, [facility] [id number] Univers 09:00:00 09:00:00 AYANA ity o f [facility] 2021-04-07 2021-04-07 Telemedici Naren [place] 1.2.840.1 14 [id number] Univers 10:43:14 14:16:00 ne Visit Socrates Humphreys EDUCATIONAL SPEECH LANGUAGE CLINICIAN 350.1.13.10 ity of [facility] 4.2.7.2.686 José Miguel as MATERNAL [phone] Med ical & CHILD 358 [facility] 2021-04-07 2021-04-07 Outpatient P [facility] [id number] Univers 10:30:00 10:30:00 ity of [facility] 2021-03-29 2021-03-29 Initial Ismael Ezra [facility] 1.2.761.817 [id number] Univers 14:13:25 15:37:34 Cam [place] 350.1.13.10 ity of Visit [place] [facility] [phone] Wy dical [address] 2021-03-29 2021-03-29 Outpatient R ISMAEL EZRA [facility] [id number] Univers 14:00:00 14:00:00 ity [facility] 2021-03-29 2021-03-29 Outpatient R ISMAEL EZRA [facility] [id number] Univers 14:00:00 14:00:00 ity [facility] 2021-03-16 2021-03-16 Outpatient P ALVIN MORRISON [facility] [id number] Univers 09:00:00 09:00:00 ity [facility] 2021-03-16 2021-03-16 [facility] 1.2.840.114 [id number] Univers 00:00:00 00:00:00 Danita SPECIALTY 350.1.13.10 ity of [place] 4[place]2.7.2.[place] [phone] [address] 2021-03-13 2021-03-13 [facility]ine [facility] 1.2.883.783 [id number] Univers 08:21:42 08:49:50 Ayana C EDUCATIONAL SPEECH LANGUAGE CLINICIAN 350.1.13.10 ity of Visit [facility] 4.2.7.2.686 José Miguel as MATERNAL [phone] Med ical & CHILD 107 [facility] [place] 2021-03-13 2021-03-13 Outpatient R JERMAINE [facility] [id number] Univers 08:00:00 08:49:50 AYANA jacobo o f [facility] 2021-03-13 2021-03-13 Outpatient R JERMAINE [facility] [id number] Univers 08:00:00 08:00:00 AYANA jacobo o f [facility] 2021-03-09 2021-03-09 Abstract Arnoldolucy, [place] 1.2.840.114 [id number] Univers 00:00:00 00:00:00 Ayana C EDUCATIONAL SPEECH LANGUAGE CLINICIAN 350.1.13.10 ity of REGIONAL 4.2.7.2.686 José Miguel as MATERNAL [phone] [facility] & CHILD [address] [place] [address] 2021-03-06 2021-03-06 Filtration Plant Operator Ultrasound, Norakalyn [facility] 1.2 .840.114 [id number] Univers 09:27:49 10:42:49 Visit Amaris Camp EDUCATIONAL SPEECH LANGUAGE CLINICIAN 350.1.13.10 ity of [place] 4.2.7.2.686 José Miguel as MATERNAL [phone] [facility] & CHILD [address] [place] [address] 2021-03-06 2021-03-06 Outpatient P [facility] [id number] Univers 09:30:00 09:30:00 ity of [facility] 2021-02-16 2021-02-16 [facility] 1.2.840.114 [id number] Univers 00:00:00 00:00:00 Ayana C EDUCATIONAL SPEECH LANGUAGE CLINICIAN 350.1.13.10 ity of [place] 4.2.7.2.686 José Miguel as MATERNAL [phone] [facility] & CHILD [address] [place] [address] 2021-02-14 2021-02-14 Telephone [facility] 1.2.840.114 [id number] Univers 00:00:00 00:00:00 Ayana C EDUCATIONAL SPEECH LANGUAGE CLINICIAN 350.1.13.10 ity of [place] 4.2.7.2.686 José Miguel as MATERNAL [phone] [facility] & CHILD [address] [place] [address] 2021-02-14 2021-02-14 Telephone [facility] 1.2.840.114 [id number] Univers 00:00:00 00:00:00 Ayana C EDUCATIONAL SPEECH LANGUAGE CLINICIAN 350.1.13.10 ity of [place] 4.2.7.2.686 José Miguel as MATERNAL [phone] [facility] & CHILD [address] [place] [address] 2021-02-13 2021-02-13 Routine Akinsipe, [place] 1.2.982.932 [id number] Univers 09:35:57 09:50:57 Ayana C EDUCATIONAL SPEECH LANGUAGE CLINICIAN 350.1.13.10 ity of Visit [place] 4.2.7.2.686 José Miguel as MATERNAL [phone] [facility] & CHILD [address] [place] [address] 2021-02-13 2021-02-13 Out[facility] [id number] Univers 09:30:00 09:30:00 AYANA ity o f [facility] 2021-01-16 2021-01-16 Routine [facility], [place] 1.2.291.370 [id number] Univers 09:33:39 10:29:59 Ayana C EDUCATIONAL SPEECH LANGUAGE CLINICIAN 350.1.13.10 ity of Visit [place] 4.2.7.2.686 José Miguel as MATERNAL [phone] [address] 2021-01-16 2021-01-16 Outpatient [facility] [id number] Univers 09:00:00 09:00:00 AYANA ity o f [facility] 2021-01-10 2021-01-10 Office Res-Colpo/Leep, [facility] UNIVERSI T 1.2.840.114 [id number] Univers 11:33:37 11:55:00 Visit Jasson Null [facility] 350.1.13.10 ity of [place] [phone] [address] 2021-01-10 2021-01-10 Outpatient R [facility] [id number] Univers 11:00:00 11:00:00 ity of [facility] 2021-01-10 2021-01-10 Orders Doctor WHITTEN 1.2.840.114 [id number] Univers 00:00:00 00:00:00 Only Unassigned, ALEIDA 350.1.13.10 ity of [place] [facility] 4.2.7.2.686 José Miguel as [phone] [address] 2021-01-06 2021-01-06 Filtration Plant Operator 1, Jckalyn Room [place] 1.2. 840.114 [id number] Univers 11:20:07 12:05:07 Visit CabreraYahir gomez EDUCATIONAL SPEECH LANGUAGE CLINICIAN 350.1.13.1 0 ity of [facility] 4.2.7.2.686 José Miguel as MATERNAL [phone] [facility] ical & CHILD [address] [place] [address] 2021-01-06 2021-01-06 Filtration Plant Operator Lab, [facility] 1.2.840. 114 [id number] Univers 11:21:49 11:56:44 Visit Yahir Cabrera EDUCATIONAL SPEECH LANGUAGE CLINICIAN 350.1.13.1 0 ity of [facility] 4.2.7.2.686 José Miguel as MATERNAL [phone] [facility] ical & CHILD [address] [place] [address] 2021-01-06 2021-01-06 Outpatient P [facility] [id number] Univers 11:00:00 11:00:00 ity of [facility] 2021-01-06 2021-01-06 Abstract [facility] 1.2.840.114 [id number] Univers 00:00:00 00:00:00 Ayana C EDUCATIONAL SPEECH LANGUAGE CLINICIAN 350.1.13.10 ity of [place] 4.2.7.2.686 José Miguel as MATERNAL [phone] [facility] ical & CHILD [address] [place] [address] 2021-01-05 2021-01-05 Telephone [facility] 1.2.840.114 [id number] Univers 00:00:00 00:00:00 Ayana C EDUCATIONAL SPEECH LANGUAGE CLINICIAN 350.1.13.10 ity of [facility] 4.2.7.2.686 José Miguel as MATERNAL [phone] [facility] ical & CHILD [address] [place] [address] 2020-12-30 2020-12-30 Telephone [facility] 1.2.840.114 [id number] Univers 00:00:00 00:00:00 Ayana C EDUCATIONAL SPEECH LANGUAGE CLINICIAN 350.1.13.10 ity of [place] 4.2.7.2.686 José Miguel as MATERNAL [phone] [facility] ical & CHILD [address] [place] [address] 2020-12-19 2020-12-19 Routine [facility] 1.2.325.679 [id number] Univers 09:09:59 10:11:06 Ayana C EDUCATIONAL SPEECH LANGUAGE CLINICIAN 350.1.13.10 ity of Visit [place] 4.2.7.2.686 José Miguel as MATERNAL [phone] Med ical & CHILD [address] [place] [address] 2020-12-19 2020-12-19 Outpatient [facility] [id number] Univers 09:00:00 09:00:00 AYANA ity o f [facility] 2020-12-09 2020-12-09 Abstract [facility] 1.2.840.114 [id number] Univers 00:00:00 00:00:00 Ayana C EDUCATIONAL SPEECH LANGUAGE CLINICIAN 350.1.13.10 ity of [place] 4.2.7.2.686 José Miguel as MATERNAL [phone] [facility] & CHILD [address] [place] [address] 2020-12-08 2020-12-08 Filtration Plant Operator Ultrasound, [facility] 1.2 .840.114 [id number] Univers 09:34:00 10:04:00 Visit Amaris Camp EDUCATIONAL SPEECH LANGUAGE CLINICIAN 350.1.13.10 ity of [place] 4.2.7.2.686 José Miguel as MATERNAL [phone] [facility] ical & CHILD 369 [facility] [place] 2020-12-08 2020-12-08 Outpatient P [facility] [id number] Univers 09:30:00 09:30:00 ity of [facility] 2020-11-29 2020-11-29 Telephone [facility] 1.2.840.114 [id number] Univers 00:00:00 00:00:00 Ayana C EDUCATIONAL SPEECH LANGUAGE CLINICIAN 350.1.13.10 ity of [place] 4.2.7.2.686 José Miguel as MATERNAL [phone] [facility] ical & CHILD [address] [place] [address] 2020-11-232020-11-23 Filtration Plant Operator Lab, Ang-Rmchp [facility] 1.2.840. 114 [id number] Univers 08:12:10 08:28:07 Visit Jermaine Ayana Tejdaa EDUCATIONAL SPEECH LANGUAGE CLINICIAN 350.1.13. 10 ity of [place] 4.2.7.2.686 José Miguel as MATERNAL [phone] [facility] & [address] 2020-11-23 2020-11-23 Outpatient R AKINDAISY, [facility] [id number] Univers 08:00:00 08:28:07 AYANA ity o [facility] 2020-11-23 2020-11-23 Outpatient R AKINSIPE, [facility] [id number] Univers 08:00:00 08:28:07 AYANA ity o [facility] 2020-11-23 2020-11-23 Outpatient R JERMAINE, [facility] [id number] Univers 08:00:00 08:00:00 AYANA ity o [facility] 2020-11-22 2020-11-22 [facility] 1.2.840.114 [id number] Univers 00:00:00 00:00:00 Ayana Mallory EDUCATIONAL SPEECH LANGUAGE CLINICIAN 350.1.13.10 ity of [place] 4.2.7.2.686 José Miguel as MATERNAL [phone] [facility] & [address] 2020-11-21 2020-11-21 Initial [facility] 1.2.495.451 [id number] Univers 08:38:42 09:55:46 Ayana C EDUCATIONAL SPEECH LANGUAGE CLINICIAN 350.1.13.10 ity of Visit [place] 4.2.7.2.686 José Miguel as MATERNAL [phone] [facility] & [address] 2020-11-21 2020-11-21 Outpatient R JERMAINE, [facility] [id number] Univers 08:30:00 08:30:00 AYANA ity o [facility] 2020-11-21 2020-11-21 Zoya WHITTEN 1.2.840.114 [id number] Univers 00:00:00 00:00:00 Only Unassigned, ALEIDA 350.1.13.10 ity of [place] [facility] 4.2.7.2.686 José Miguel as [phone] [facility] [address] Results This patient has no known results.
[2022-09-15 18:55] LABS: Urine Blood Negative (Negative); Urine Glucose Negative (Negative); Urine Protein Negative (Negative); Urine pH 5.5 (5.0-7.0)
[2022-09-15 19:03] LABS: Absolute Lymphocytes (CBC) 2.8 K/uL (0.7-4.9); Hematocrit 37.5 % (36.0-45.0); Lymphocytes % 29.2 % (15.3-44.8); MCV 80.8 fL (80-100); MPV 7.6 fL (7.6-11.3); RBC Red Blood Cell Count 4.64 M/uL (3.86-4.86)
[2022-09-15 19:06] LABS: Protime INR 1.15
[2022-09-15 19:10] LABS: Albumin 3.7 g/dL (3.4-5.0); Bilirubin Direct 0.1 mg/dL (0-0.2); Bilirubin Total 0.5 mg/dL (0.2-1.0); Magnesium 2.1 mg/dL (1.6-2.4); Potassium 3.5 mmol/L (3.5-5.1); Protein, Total 8.3 g/dL (6.4-8.2); Thyroid Stimulating Hormone 0.366 uIU/mL (0.358-3.740); Troponin High Sensitivity 3.5 pg/mL (<58.9)
[2022-09-15] MEDS ORDERED: NA CHLORIDE 0.9% 1,000 ML ONE (19:32)
--- NOTE | 2022-09-15 22:11 | ER ---
Nurse's Notes [facility] Name: Vernon Rodgers Age: 42 yrs Sex: Female : 1980 Arrival Date: 09/15/2022 Time: 17:04 Bed 19 Private MD: Diagnosis: Dizziness and giddiness;Palpitations Presentation: 09/15 17:15 Chief complaint: Patient states: "I've been feeling dizzy on and off, my hear rate has aa5 been high, my blood pressure gets high, and my mouth is dry". Coronavirus screen: At this time, the client does not indicate any symptoms associated with coronavirus-19. Ebola Screen: Patient denies travel to an Ebola-affected area in the 21 days before illness onset. Risk Assessment: Do you want to hurt yourself or someone else? Patient reports no desire to harm self or others. Onset of symptoms was September 03, 2022. 17:15 Acuity: ULISES 3 aa5 17:15 Method Of Arrival: Wheelchair aa5 17:15 Initial Sepsis Screen: Does the patient meet any 2 criteria? HR > 90 bpm. Does the aa5 patient have a suspected source of infection? No. Patient's initial sepsis screen is negative. Historical: - Allergies: 17:17 No Known Allergies; aa5 - Home Meds: 17:17 None [Active]; aa5 - PMHx: 17:17 None; aa5 - PSHx: 17:17 None; aa5 - Immunization history:: Adult Immunizations unknown. - Social history:: Smoking status: Patient reports the use of cigarette tobacco products, smokes one-half pack cigarettes per day. Screenin:34 [facility] ED Fall Risk Assessment (Adult) History of falling in the last 3 months, vc1 including since admission No falls in past 3 months (0 pts) Confusion or Disorientation No (0 pts) Intoxicated or Sedated No (0 pts) Impaired Gait No (0 pts) Mobility Assist Device Used No (0 pt) Altered Elimination No (0 pt) Score/Fall Risk Level 0 - 2 = Low Risk Oriented to surroundings, Maintained a safe environment, Educated pt \\T\\ family on fall prevention, incl call for assistance when getting out of bed. Abuse screen: Denies threats or abuse. Nutritional screening: No deficits noted. Tuberculosis screening: No symptoms or risk factors identified. Assessment: 18:33 General: Appears in no apparent distress. kr3 18:33 Pain: Denies pain. Neuro: Level of Consciousness is awake, alert, obeys commands, kr3 Oriented to person, place, time, situation. Cardiovascular: Patient's skin is warm and dry. Respiratory: Airway is patent Respiratory effort is even, unlabored, Respiratory pattern is regular, symmetrical. 18:33 GI: No signs and/or symptoms were reported involving the gastrointestinal system. : kr3 No signs and/or symptoms were reported regarding the genitourinary system. EENT: No signs and/or symptoms were reported regarding the EENT system. Derm: No signs and/or symptoms reported regarding the dermatologic system. Musculoskeletal: No signs and/or symptoms reported regarding the musculoskeletal system. 19:30 Reassessment: Patient appears in no apparent distress at this time. Patient and/or kr3 family updated on plan of care and expected duration. Pain level reassessed. Patient is alert, oriented x 3, equal unlabored respirations, skin warm/dry/pink. 20:17 Reassessment: Patient appears in no apparent distress at this time. Patient and/or kr3 family updated on plan of care and expected duration. Pain level reassessed. Patient is alert, oriented x 3, equal unlabored respirations, skin warm/dry/pink. 21:00 Reassessment: Assumed care at 2100. vc1 21:02 Reassessment: Patient appears in no apparent distress at this time. Patient and/or kr3 family updated on plan of care and expected duration. Pain level reassessed. Patient is alert, oriented x 3, equal unlabored respirations, skin warm/dry/pink. Vital Signs: 17:15 BP 155 / 86; Pulse 99; Resp 18 S; Temp 98.0(TE); Pulse Ox 100% on R/A; Weight 93.89 kg aa5 (R); Height 5 ft. 5 in. (165.10 cm) (R); 19:02 BP 149 / 89 LA Supine; Pulse 85 LA; kr3 19:02 BP 150 / 91 LA Sitting; Pulse 86; kr3 19:02 BP 189 / 90 LA Standing; Pulse 58 LA; kr3 20:00 BP 133 / 85; Pulse 79; Resp 18; Pulse Ox 100% ; kr3 21:02 BP 131 / 79; Pulse 74; Resp 18; Pulse Ox 100% on R/A; kr3 21:59 BP 138 / 73; Pulse 84; Resp 18; Pulse Ox 100% ; vc1 17:15 Body Mass Index 34.45 (93.89 kg, 165.10 cm) aa5 ED Course: 17:04 Patient arrived in ED. as 17:07 Judith Garcia FNP-C is [facility]. kb 17:07 Bakari Carpio MD is Attending Physician. kb 17:15 Arm band placed on. aa5 17:17 Triage completed. aa5 18:33 Kelsi De La O, RN is Primary Nurse. kr3 21:00 Patient has correct armband on for positive identification. Placed in gown. Bed in low vc1 position. Call light in reach. Client placed on continuous cardiac and pulse oximetry monitoring. NIBP monitoring applied. 22:34 No provider procedures requiring assistance completed. IV discontinued, intact, vc1 bleeding controlled, No redness/swelling at site. Pressure dressing applied. Patient maintains SpO2 saturation greater than 95% on room air. Administered Medications: 19:45 Drug: NS 0.9% 1000 ml Route: IV; Rate: 1000 ml; Site: right wrist; kr3 Medication: 22:35 VIS not applicable for this client. vc1 Outcome: 22:11 Discharge ordered by . kb 22:35 Discharged to home ambulatory. vc1 22:35 Condition: good 22:35 Discharge instructions given to patient, Instructed on discharge instructions, follow up and referral plans. medication usage, Demonstrated understanding of instructions, follow-up care. 22:36 Patient left the ED. vc1 Signatures: Judith Garcia FNP-C FNP-Eve Cullen Audri RN RN aa5 Janell Lerma RN RN vc1 Kelsi De La O, BILLIE WISE kr3 Corrections: (The following items were deleted from the chart) 17:18 17:17 Social history: Smoking status: Patient reports the use of cigarette tobacco aa5 products, aa5
--- NOTE | 2022-09-15 22:11 | EDPHYS ---
Physician Documentation [facility] Name: Vernon Rodgers Age: 42 yrs Sex: Female : 1980 Arrival Date: 09/15/2022 Time: 17:04 Bed 19 Private MD: ED Physician Bakari Carpio HPI: 09/15 18:35 This 42 yrs old Black Female presents to ER via Wheelchair with complaints of High kb Blood Pressure, Dizziness, Irregular Pulse. 18:35 The patient presents with dizziness, feeling faint. Onset: The symptoms/episode kb began/occurred 12 day(s) ago. Context: occurred at home. Modifying factors: The symptoms are alleviated by nothing, the symptoms are aggravated by nothing. Associated signs and symptoms: Pertinent positives: palpitations, Dry mouth. Severity of symptoms: At their worst the symptoms were moderate in the emergency department the symptoms are unchanged. Patient's baseline: Neuro: alert and fully oriented, Motor: no deficits, Ambulation: walks without assistance, Speech: normal. The patient has not experienced similar symptoms in the past. The patient has been recently seen by a physician: the ER physician, out of Town. Historical: - Allergies: 17:17 No Known Allergies; aa5 - Home Meds: 17:17 None [Active]; aa5 - PMHx: 17:17 None; aa5 - PSHx: 17:17 None; aa5 - Immunization history:: Adult Immunizations unknown. - Social history:: Smoking status: Patient reports the use of cigarette tobacco products, smokes one-half pack cigarettes per day. ROS: 18:39 Constitutional: Negative for fever, chills, and weight loss. kb 18:39 ENT: Positive for Dry mouth. 18:39 Cardiovascular: Positive for palpitations. 18:39 Neuro: Positive for dizziness, near syncope. 18:39 All other systems are negative. Exam: 18:39 Constitutional: This is a well developed, well nourished patient who is awake, alert, kb and in no acute distress. Head/Face: Normocephalic, atraumatic. ENT: Moist Mucous membranes Cardiovascular: Regular rate and rhythm with a normal S1 and S2. No gallops, murmurs, or rubs. No pulse deficits. Respiratory: Respirations even and unlabored. No increased work of breathing. Talking in full sentences Abdomen/GI: Soft, non-tender. No distention Skin: Warm, dry with normal turgor. Normal color. MS/ Extremity: Pulses equal, no cyanosis. Neurovascular intact. Full, normal range of motion. Neuro: Awake and alert, GCS 15, oriented to person, place, time, and situation. Moves all extremities. Normal gait. Psych: Awake, alert, with orientation to person, place and time. Behavior, mood, and affect are within normal limits. 19:09 ECG was reviewed by the Attending Physician. Vital Signs: 17:15 BP 155 / 86; Pulse 99; Resp 18 S; Temp 98.0(TE); Pulse Ox 100% on R/A; Weight 93.89 kg aa5 (R); Height 5 ft. 5 in. (165.10 cm) (R); 19:02 BP 149 / 89 LA Supine; Pulse 85 LA; kr3 19:02 BP 150 / 91 LA Sitting; Pulse 86; kr3 19:02 BP 189 / 90 LA Standing; Pulse 58 LA; kr3 20:00 BP 133 / 85; Pulse 79; Resp 18; Pulse Ox 100% ; kr3 21:02 BP 131 / 79; Pulse 74; Resp 18; Pulse Ox 100% on R/A; kr3 21:59 BP 138 / 73; Pulse 84; Resp 18; Pulse Ox 100% ; vc1 17:15 Body Mass Index 34.45 (93.89 kg, 165.10 cm) aa5 MDM: 17:07 Patient medically screened. kb 18:35 Data reviewed: vital signs, nurses notes. kb 18:38 Differential diagnosis: cardiac arrhythmia, generalized weakness, hypovolemia, kb idiopathic dizziness, near-syncope. 18:39 ED course: Patient is a 42-year-old female with no medical history who presents for kb dizziness, near syncope, dry mouth, high blood pressure and palpitations that have been intermittent for 12 days. Unremarkable physical exam. Will obtain serum labs, EKG and urine.. 22:05 Counseling: I had a detailed discussion with the patient and/or guardian regarding: the kb historical points, exam findings, and any diagnostic results supporting the discharge/admit diagnosis, lab results, radiology results, the need for outpatient follow up, a family practitioner, to return to the emergency department if symptoms worsen or persist or if there are any questions or concerns that arise at home. 23:35 Special discussion: I discussed with the patient/guardian in detail that at this point kb there is no indication for admission to the hospital. It is understood, however, that if the symptoms persist or worsen the patient needs to return immediately for re-evaluation. ED course: Patient nontoxic in appearance. Tolerating p.o. intake. States she is feeling better. Has a follow-up appointment with PCP on Saturday. Discussed all diagnostic results with patient and gave printed copy. Patient educated on return precautions. Verbal understanding received.. 09/15 17:19 Order name: Basic Metabolic Panel kb 09/15 17:19 Order name: CBC with Diff kb 09/15 17:19 Order name: Hepatic Function kb 09/15 17:19 Order name: Magnesium kb 09/15 17:19 Order name: Protime (+inr) kb 09/15 17:19 Order name: Ptt, Activated kb 09/15 17:19 Order name: Troponin High Sensitivity kb 09/15 17:19 Order name: TSH kb 09/15 18:55 Order name: Urine Dipstick-Ancillary; Complete Time: 18:55 EDMS 09/15 19:05 Order name: CBC with Automated Diff; Complete Time: 19:07 EDMS 09/15 19:06 Order name: Protime (+INR); Complete Time: 19:07 EDMS 09/15 19:06 Order name: PTT, Activated Partial Thromb; Complete Time: 19:07 EDMS 09/15 19:10 Order name: Basic Metabolic Panel; Complete Time: 19:17 EDMS 09/15 19:10 Order name: Liver (Hepatic) Function; Complete Time: 19:17 EDMS 09/15 17:19 Order name: EKG; Complete Time: 17:20 kb 09/15 17:19 Order name: Cardiac monitoring; Complete Time: 19:23 kb 09/15 17:19 Order name: EKG - Nurse/Tech; Complete Time: 19:23 kb 09/15 17:19 Order name: IV Saline Lock; Complete Time: 18:32 kb 09/15 17:19 Order name: Labs collected and sent; Complete Time: 18:32 kb 09/15 17:19 Order name: NPO; Complete Time: 18:32 kb 09/15 17:19 Order name: O2 Per Protocol; Complete Time: 18:32 kb 02/18 17:19 Order name: O2 Sat Monitoring; Complete Time: 18:32 kb 09/15 17:19 Order name: Orthostatics; Complete Time: 19:00 kb 09/15 17:19 Order name: Urine Dipstick-Ancillary (obtain specimen); Complete Time: 19:00 kb 09/15 19:10 Order name: Troponin High Sensitivity; Complete Time: 19:17 EDMS 09/15 19:10 Order name: Magnesium; Complete Time: 19: EDMS 09/15 19:10 Order name: Thyroid Stimulating Hormone; Complete Time: 19:17 EDMS EC:09 Rate is 77 beats/min. Rhythm is regular. QRS [place] is Normal. UT interval is normal at kb 164 msec. QRS interval is normal at 78 msec. QT interval is normal at 420 msec. Administered Medications: 19:45 Drug: NS 0.9% 1000 ml Route: IV; Rate: 1000 ml; Site: right wrist; kr3 Disposition: 09/16 20:21 Co-signature as Attending Physician, Bakari Carpio MD I reviewed the patient's care rt provided by the Advanced Practice Provider and agree with the diagnosis and treatment plan. Disposition Summary: 09/15/22 22:11 Discharge Ordered Location: Home kb Condition: Stable kb Diagnosis - Dizziness and giddiness kb - Palpitations kb Followup: kb - With: Emergency Department - When: As needed - Reason: Worsening of condition Followup: kb - With: Private Physician - When: 2 - 3 days - Reason: Recheck today's complaints, Continuance of care, Re-evaluation by your physician Discharge Instructions: - Discharge Summary Sheet kb - Palpitations, [id number] kb - Dizziness, [id number] kb Forms: - Medication Reconciliation Form kb - Thank You Letter kb - Antibiotic Education kb - Prescription Opioid Use kb Signatures: Dispatcher [employer] EDMS Judith Garcia, [employer] KNIFE OPERATOR-Alejandrina Alarcon RN RN shanta5 Kelsi De La O RN RN kr3 Bakari Carpio MD MD rt Corrections: (The following items were deleted from the chart) 09/15 17:18 17:17 Social history: Smoking status: Patient reports the use of cigarette tobacco aa5 products, aa5 18:37 18:35 The patient has not recently seen a physician, kb kb 18:37 18:35 The patient has not experienced similar symptoms in the past, kb kb
[2022-09-15 23:56] VITALS: TEMP 98; O2SAT 100
[2022-09-16 00:11] VITALS: BP 138/73
--- NOTE | 2022-09-17 12:40 | EKG ---
Test Date: 2022-09-15 Test Time: 19:04:31 Chief Deputy Clerk/Bailiff: NEELAM MEASUREMENT RESULTS: Intervals: Rate: 77 NV: 164 QRSD: 78 QT: 372 QTc: 420 [place]: P: 63 NV: 164 QRS: 62 T: 34 INTERPRETIVE STATEMENTS: Normal sinus rhythm Normal ECG Compared to ECG 06/30/2011 11:10:27 No significant changes Electronically Signed On 09-17-22 12:36:21 CONSERVATION POLICY ANALYST by Gabriel Rivera
== END 2022-09-15 22:36 | disposition home or self-care (01) ==
LOC: ER 17:02
DX: R42 Dizziness and giddiness (principal); R00.2 Palpitations; F17.210 Nicotine dependence, cigarettes, uncomplicated
CPT/HCPCS: 93005; 85025; 80048; 36415; 83735; 85610; 80076; 85730; 84443; 81003; 84484; 99284; J7030

== ENCOUNTER 2024-04-12 02:42 | Emergency (ER) | payer BC, OTHER ==
--- OUTSIDE RECORDS SUMMARY | 2024-04-12 02:47 | XMS REPORT | Continuity of Care Document ---
Author Name Unknown Address [address] [facility]. [address] [place] [address] [facility] Address [address] [facility] [address] [place] [address] Care Team Providers Care Rn Internal Medicine Name Role Phone EBONY ANGELES Primary Care Physician Unavailab EZRA Pfeiffer Attending Clinician Unavailable MINDA WELLS Attending Clinician Unavailable Minda Wells DNP Attending Clinician [phone] [email or web address]_Kadiyala_S Attending Clinician Unavaila EBONY Rivera Attending Clinician Unavailable Doctor Unassigned, [place] Attending Clinician U Misti Parson MD Attending Clinician [phone]- [phone] MISTI SOTELO Attending Clinician Unaval kraft Nurse, [facility] Attending Clinician Un available Ezra Guevara MD Attending Clinician [phone] PARKER PRICE Attending Clinician Unavailable Parker Price MD Attending Clinician [phone] Unknown, Attending Attending Clinician Unavailab jacky NICHOLS, ATTENDING Attending Clinician Unavailab Ebony Castillo Attending Clinician [phone] Lab, Ang - Db Attending Clinician Unavailable GALDINO TAVARES Attending Clinician Unavailable GALDINO TAVARES Attending Clinician Unavailable Pob, Adc Lab Main Attending Clinician Unavailabl e Only, Adc Test Attending Clinician Unavailable Radha Monsivais RN Attending Clinician Unavailab le AdLisbeth moore MD Attending Clinician LISBETH SZYMANSKI Attending Clinician Unavailable Dakota Churchill MD Attending Clinician + [phone] Room, [facility] N[facility] Attending Clinician Unavailable Maria G Sullivan MD, Jose Attending Clinician + Ultrasound, Ang-m Attending Clinician UnavailOtilia Brambila MD Attending Clinician [phone] OTILIA LEMUS Attending Clinician Unavailable JOSE KASPER Attending Clinician Keya Contreras PA-C Attending Clinician [phone] KEYA TORRES Attending Clinician Unavailable 2, [facility] Lab Attending Clinician Unavailable Jermaine CNPAyana Attending Clinician + AYANA DEAN Attending Clinician Unavail able Naren Richmond Attending Clinician Unavailable Socrates Humphreys MD Attending Clinician [phone] ALVIN MORRISON Attending Clinician Unavailable Danita Valadez Attending Clinician Unavailcorby Camp MD, Amaris Clark Attending Clinician [phone] Res-Colpo/Leep, [facility] Attending Clinician Un available Jasson Null MD Attending Clinician [phone], [facility] Attending Clinician Unavailab Yahir Mercer MD Attending Clinician + [phone] Lab, [facility] Attending Clinician Unavailable Lab, [facility] Attending Clinician Unavailable EZRA GUEVARA Admitting Clinician Unavailable [email or web address]_Britton Admitting Clinician UnavailGLADINO Schultz Admitting Clinician Unavailable Ezra Guevara MD Admitting Clinician [phone] Lisbeth Szymanski MD Admitting Clinician [phone] LISBETH SZYMANSKI Admitting Clinician Unavailable Payers Payer Name Policy Type Policy Number Effective Date Expirati on Date Source [facility] [id number] 00:00:00 [facility] [id number] 00:00:00 [place] [id number] 2019 00:00:00 Problems Condition Name Condition Details Condition Category Status Onset Date Resolution Date Last Treatment Date Treating Clinician Comments Source S/P LEEP of cervix S/P LEEP of cervix Disease Active - 00:00: 00 [facility] S/P LEEP of cervix S/P LEEP of cervix Disease Active 11-21 00:00: 00 [facility] Cervical high risk human papillomav irus (HPV) DNA test positive Cervical high risk human papillomav irus (HPV) DNA test positive Disease Active 3-24 00:00: 00 Overview: Formattin g of this note might be different from the original. Added automatic ally from request for surgery [id number] [facility] Obesity (BMI 30-39.9) Obesity (BMI 30-39.9) Disease Active 03-29 00:00: 00 [facility] Pap smear of cervix with ASCUS, cannot exclude HGSIL Pap smear of cervix with ASCUS, cannot exclude HGSIL Disease Active 01-05 00:00: 00 Overview: Formattin g of this note might be different from the original. +hpv, pending colpo [facility] hypertensi on hypertensi on Disease Resolve d 2020-07 2-27 00:00: 00 2021-08-23 00:00:00 2021-08-23 16:08:37 [facility] Lab test positive for detection of COVID-19 virus Lab test positive for detection of COVID-19 virus Disease Resolve d 2020-07 2-15 00:00: 00 2021-08-23 00:00:00 2021-08-23 16:08:37 [facility] Single liveborn, born in hospital, delivered by vaginal delivery Single liveborn, born in hospital, delivered by vaginal delivery Disease Resolve d 2020-07 2-15 00:00: 00 2021-08-23 00:00:00 2021-08-23 16:08:37 [facility] Gestationa l hypertensi on, third trimester Gestationa l hypertensi on, third trimester Disease Resolve d 2020-07 2-14 00:00: 00 2021-08-23 00:00:00 2021-08-23 16:29:58 [facility] Normal labor Normal labor Disease Resolve d 2020-07 2-14 00:00: 00 2021-08-23 00:00:00 2021-08-23 16:08:37 [facility] Anemia of mother in , antepartum Anemia of mother in , antepartum Disease Resolve d 9- 00:00: 00 2021-08-23 00:00:00 2021-08-23 16:30:01 [facility] Uterine fibroids affecting in third trimester Uterine fibroids affecting in third trimester Disease Resolve d - 00:00: 00 2021-08-23 00:00:00 2021-08-23 16:30:21 [facility] Abnormal MSAFP (maternal serum alpha-feto protein), elevated Abnormal MSAFP (maternal serum alpha-feto protein), elevated Disease Resolve d - 00:00: 00 2021-08-23 00:00:00 2021-08-23 16:30:01 [facility] Abnormal maternal glucose tolerance, antepartum Abnormal maternal glucose tolerance, antepartum Disease Resolve d - 00:00: 00 2021-08-23 00:00:00 2021-08-23 16:30:05 [facility] AMA (advanced maternal age) multigravi da 35+ AMA (advanced maternal age) multigravi da 35+ Disease Resolve d - 00:00: 00 2021-08-23 00:00:00 2021-08-23 16:30:15 [facility] Supervisio n of high-risk of elderly multigravi da Supervisio n of high-risk of elderly multigravi da Disease Resolve d - 00:00: 00 2021-08-23 00:00:00 2021-08-23 16:30:15 [facility] Multiparit y Multiparit y Disease Resolve d 11-21 00:00: 00 2021-08-23 00:00:00 2021-08-23 16:30:14 [facility] History of miscarriag e History of miscarriag e Disease Resolve d 4- 00:00: 00 2021-08-23 00:00:00 2021-08-23 16:30:09 [facility] Tobacco use in Tobacco use in Disease Resolve d 4- 00:00: 00 2021-08-23 00:00:00 2021-08-23 16:30:08 [facility] Obesity in Obesity in Disease Resolve d 4 00:00: 00 2021-08-23 00:00:00 2021-08-23 16:30:16 [facility] Atypical squamous cell changes of undetermin ed significan ce (ASCUS) on cervical cytology with negative high risk human papilloma virus (HPV) test result Atypical squamous cell changes of undetermin ed significan ce (ASCUS) on cervical cytology with negative high risk human papilloma virus (HPV) test result Disease Resolve d 11-22 00:00: 00 2021-03-29 00:00:00 2021-03-29 18:03:41 [facility] Allergies, Adverse Reactions, Alerts Allergy Name Allergy Type Status Severity Reaction(s) Onset Date Inactive Date Treating Clinician Comments Source NO KNOWN ALLERGIE S Drug Class Active [facility] Social History Social Habit Start Date Stop Date Quantity Comments Source History of tobacco use Cigarette Smoker [facility] Alcoholic beverage intake 2024-04-11 00:00:00 2024-04-11 00:00:00 Ex-drinker (finding) [facility] Exposure to SARS-CoV-2 (event) 2022-12-01 00:00:00 2022-12-11 13:53:00 Not sure [facility] Cigarettes smoked current (pack per day) - Reported 2022-09-20 00:00:00 2022-09-20 00:00:00 [facility] Tobacco use and exposure 2022-09-20 00:00:00 2022-09-20 00:00:00 Smokeless tobacco non-user [facility] History of Social function 2022-09-20 00:00:00 2022-09-20 00:00:00 [facility] Cigarette pack-years 2022-09-20 00:00:00 2022-09-20 00:00:00 [facility] Alcohol intake 2020-12-19 00:00:00 2020-12-19 00:00:00 Ex-drinker (finding) [facility] Tobacco Comment 2020-11-21 00:00:00 2020-11-21 00:00:00 states will quti with [facility] Sex assigned at 1980 00:00:00 1980 00:00:00 [facility] Smoking Status Start Date Stop Date Source Smokes tobacco daily 2022-09-20 00:00:00 [facility] Medications Ordered Medication Name Filled Medication Name Start Date Stop Date Current Medication? Ordering Clinician Indication Dosage Frequency Signature (SIG) Comments Components Source tirzepatide 2.5 mg/0.5 mL subcutaneou s injection 10-23 00:00: 00 Yes [id number] 2.5mg inject 2.5 mg under the skin weekly. [facility] NIFEdipine ER 30 mg tablet 10-23 00:00: 00 Yes [id number] 30mg Take 1 tablet by mouth in the morning. [facility] ergocalcife rol, vitamin d2, 1,250 mcg (50,000 unit) capsule 09-22 00:00: 00 Yes [id number] Take 1 capsule by mouth weekly. [facility] NIFEdipine ER 30 mg tablet 09-20 00:00: 00 10-23 00:00 :00 No [id number] 30mg Take 1 tablet by mouth in the morning. [facility] semaglutide , weight loss, (WEGOVY) 0.25 mg/0.5 mL PnIj SC injection 09-20 00:00: 00 10-23 00:00 :00 No [id number] .25mg inject 0.25 mg under the skin weekly. [facility] NaCl 0.9% (NS) bolus infusion 1,000 mL 09-03 18:45: 00 09-03 20:16 :00 No 1000mL at 999 mL/hr, 1,000 mL, IV Infusion, ONCE, 1 dose, On Sat09/03/22 at 1245, REGINA [facility] ibuprofen 600 mg tablet 11-21 00:00: 00 09-20 00:00 :00 No [id number] 102 600mg Take 1 tablet by mouth every 6 (six) hours as needed for Pain (scale 1-3) or Pain (scale 4-6). [facility] acetaminoph en (TYLENOL) 325 mg tablet 11-21 00:00: 00 09-20 00:00 :00 No [id number] 102 650mg Take 2 tablets by mouth every 6 (six) hours as needed for Pain (scale 1-3) or Pain (scale 4-6). [facility] PNV 67-iron ps-folate no.1-dha (VITAFOL ULTRA) 29 mg iron- 1 mg-200 mg Cap 2020-07 00:00: 00 09-20 00:00 :00 No 1{capsu le} Take 1 capsule by mouth daily. [facility] PNV 67-iron ps-folate no.1-dha (VITAFOL ULTRA) 29 mg iron- 1 mg-200 mg Cap 2020-07 00:00: 00 09-20 00:00 :00 No 1{capsu le} Take 1 capsule by mouth daily. [facility] ferrous sulfate 325 mg (65 mg iron) tablet 2020-07 00:00: 00 11-21 00:00 :00 No [id number] 325mg Take 1 tablet by mouth 2 (two) times daily. [facility] PNV 67-iron ps-folate no.1-dha (VITAFOL ULTRA) 29 mg iron- 1 mg-200 mg Cap 11-22 00:00: 00 07-17 00:00 :00 No [id number] 1{each} Take 1 Each by mouth daily. [facility] Vital Signs Vital Name Observation Time Observation Value Cj castro Systolic blood pressure 2024-04-10 21:40:00 138 mm[Hg] [facility] Diastolic blood pressure 2024-04-10 21:40:00 71 mm[Hg] [facility] Heart rate 2024-04-10 21:40:00 106 /min Unive [facility] Body weight 2024-04-10 21:40:00 93.804 kg [facility] BMI 2024-04-10 21:40:00 34.41 kg/m2 [facility] Systolic blood pressure 2022-11-02 16:08:00 143 mm[Hg] [facility] Diastolic blood pressure 2022-11-02 16:08:00 84 mm[Hg] [facility] Heart rate 2022-11-02 16:08:00 82 /min Unive [facility] Body temperature 2022-11-02 16:08:00 36.83 Sendy [facility] Respiratory rate 2022-11-02 16:08:00 16 /min [facility] Body height 2022-11-02 16:08:00 165.1 cm [facility] Body weight 2022-11-02 16:08:00 87.544 kg [facility] BMI 2022-11-02 16:08:00 32.12 kg/m2 [facility] Systolic blood pressure 2022-10-29 21:19:00 153 mm[Hg] [facility] Diastolic blood pressure 2022-10-29 21:19:00 87 mm[Hg] [facility] Heart rate 2022-10-29 21:19:00 102 /min Unive [facility] Body temperature 2022-10-29 21:19:00 36.94 Sendy [facility] Respiratory rate 2022-10-29 21:19:00 18 /min [facility] Body height 2022-10-29 21:19:00 165.1 cm [facility] Body weight 2022-10-29 21:19:00 87.771 kg [facility] BMI 2022-10-29 21:19:00 32.20 kg/m2 [facility] Oxygen saturation in Arterial blood by Pulse oximetry 2022-10-29 21:19:00 99 /min [facility] Systolic blood pressure 2022-10-23 15:35:00 139 mm[Hg] [facility] Diastolic blood pressure 2022-10-23 15:35:00 79 mm[Hg] [facility] Heart rate 2022-10-23 15:22:00 70 /min [facility] Body height 2022-10-23 15:22:00 165.1 cm [facility] Body weight 2022-10-23 15:22:00 88.451 kg Univ [facility] BMI 2022-10-23 15:22:00 32.45 kg/m2 [facility] Oxygen saturation in Arterial blood by Pulse oximetry 2022-10-23 15:22:00 99 /min [facility] Systolic blood pressure 2022-09-20 16:00:00 148 mm[Hg] [facility] Diastolic blood pressure 2022-09-20 16:00:00 84 mm[Hg] [facility] Heart rate 2022-09-20 15:59:00 92 /min [facility] Body height 2022-09-20 15:59:00 165.1 cm [facility] Body weight 2022-09-20 15:59:00 90.992 kg [facility] BMI 2022-09-20 15:59:00 33.38 kg/m2 [facility] Oxygen saturation in Arterial blood by Pulse oximetry 2022-09-20 15:59:00 100 /min [facility] Heart rate 2022-09-03 22:36:00 97 /min Un[facility] Respiratory rate 2022-09-03 22:36:00 18 /min [facility] Systolic blood pressure 2022-09-03 22:20:06 131 mm[Hg] [facility] Diastolic blood pressure 2022-09-03 22:20:06 82 mm[Hg] [facility] Oxygen saturation in Arterial blood by Pulse oximetry 2022-09-03 22:20:06 97 /min [facility] Body temperature 2022-09-03 17:26:00 37.06 [facility] Body height 2022-09-03 17:26:00 165.1 cm [facility] Body weight 2022-09-03 17:26:00 95.255 kg [facility] BMI 2022-09-03 17:26:00 34.95 kg/m2 [facility] Systolic blood pressure 2022-01-01 13:46:00 134 mm[Hg] [facility] Diastolic blood pressure 2022-01-01 13:46:00 87 mm[Hg] [facility] Heart rate 2022-01-01 13:46:00 69 /min [facility] Body temperature 2022-01-01 13:46:00 37.06 Sendy [facility] Body height 2022-01-01 13:46:00 165.1 cm [facility] Body weight 2022-01-01 13:46:00 89.812 kg [facility] BMI 2022-01-01 13:46:00 32.95 kg/m2 [facility] Procedures Procedure Date / Time Performed Performing Clinician Source PAP SMEAR-LIQUID BASED-CP 2024-04-10 22:02:00 Minda Wells [facility] POCT TEST 2024-04-10 00:00:00 Minda Wells [facility] POCT TEST 2022-11-02 00:00:00 Ezra Guevara [facility] POCT TEST 2022-10-29 21:23:00 [facility] 2022-10-29 21:20:00 Parker Price [facility] PATIENT FINANCIAL POLICY 2022-10-23 15:16:20 Doctor Unassigned, [place] [facility] EXTERNAL PROVIDER RECORDS 2022-10-11 05:01:00 Doctor Unassigned, [place] [facility] COMP. METABOLIC PANEL ([id number]) 2022-09-20 17:02:00 Ebony Angeles [facility] CBC WITH DIFF 2022-09-20 17:02:00 [facility] 2022-09-20 15:45:54 Docto r Unassigned, [place] [facility] EKG-12 LEAD 2022-09-03 22:19:39 Bharati Montalvo [facility] CBC WITH DIFF 2022-09-03 18:28:00 Bharati Montalvo [facility] URINALYSIS 2022-09-03 18:28:00 Selvin [facility] EXTRA TUBE ORANGE 2022-09-03 18:28:00 Galdino Tavares [facility] URINE DRUG (IMMUNOASSAY) - COMPREHENSIVE DRUG SCREEN W/O REFLEX 2022-09-03 18:28:00 Bharati Montalvo [facility] Encounters Start Date/Time End Date/Time Encounter Type Admission Type Attending Clinicians Care Facility Care Department Encounter ID Source 2021-10-24 09:39:02 Outpatient R EZRA GUEVARA [facility] 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 [id number] [facility] 2021-07-24 15:40:36 Outpatient P [facility] SAI [id number] [facility] 2024-04-10 16:30:00 2024-04-10 17:10:48 Outpatient R MINDA WELLS [facility] [id number] [facility] 2024-04-10 16:30:00 2024-04-10 17:10:48 Office Visit [facility] 1.2.840.114 350.1.13.10 4.2.7.2.686 [id number] [facility] 2023-05-25 00:00:00 2023-05-25 00:00:00 Outpatient GC_GCBZW_Ka diyala_S PRIV PRIV [id number] [facility] 2023-04-26 10:30:00 2023-04-26 10:30:00 Outpatient R EBONY ANGELES [facility] [id number] [facility] 2023-01-24 00:00:00 2023-01-24 00:00:00 Patient Secure Msg Doctor Unassigned, [place] [facility] 1.840.114 350.1.13.10 4.2.7.2.686 [id number] [facility] 2022-12-11 14:30:00 2022-12-11 15:00:00 Office Visit Misti Keyes [facility] 1..840.114 350.1.13.10 4.2.7.2.686 [id number] [facility] 2022-12-11 14:30:00 2022-12-11 14:30:00 Outpatient R JAIME Jarquin, MISTI JAIME S MISTI [facility] [id number] [facility] 2022-12-04 13:15:00 2022-12-04 13:15:00 Outpatient EZRA RAMIREZ [facility] [id number] [facility] 2022-11-22 09:30:00 2022-11-22 09:30:00 Outpatient R EZRA GUEVARA [facility] [id number] [facility] 2022-11-02 10:30:00 2022-11-02 11:00:12 Outpatient R EZRA GUEVARA [facility] [id number] [facility] 2022-11-02 10:30:00 2022-11-02 11:00:12 Nurse Visit Nurse, [facility] Ezra Guevara [facility] 1..840.114 350.1.13.10 4.2.7.2.686 [id number] [facility] 2022-10-29 16:00:00 2022-10-29 16:36:29 Outpatient R PARKER PRICE [facility] [id number] [facility] 2022-10-29 16:00:00 2022-10-29 16:36:29 Urgent Care Parker Price Unknown, Attending [facility] 1..840.114 350.1.13.10 4.2.7.2.686 [id number] [facility] 2022-10-29 15:45:00 2022-10-29 15:45:00 Outpatient R UNKNOWN, ATTENDING [facility] [id number] [facility] 2022-10-24 00:00:00 2022-10-24 00:00:00 [facility] 1..840.114 350.1.13.10 4.2.7.2.686 [id number] [facility] 2022-10-23 10:30:00 2022-10-23 11:21:59 Outpatient R EBONY ANGELES [facility] [id number] [facility] 2022-10-23 10:30:00 2022-10-23 11:21:59 [facility] 1.840.114 350.1.13.10 4.2.7.2.686 [id number] [facility] 2022-10-23 00:00:00 2022-10-23 00:00:00 Orders Only Doctor Unassigned, [place] [facility] 1.2840.114 350.1.13.10 4.2.7.2.686 [id number] [facility] 2022-10-11 00:00:00 2022-10-11 00:00:00 Orders Only Doctor Unassigned, [place] [facility] 1.2.840.114 350.1.13.10 4.2.7.2.686 [id number] [facility] 2022-09-26 10:45:00 2022-09-26 11:00:00 Ui Developer Designer Visit Lab, Ry PatriciaKathy [facility] 1.2.840.114 350.1.13.10 4.2.7.2.686 [id number] [facility] 2022-09-26 10:45:00 2022-09-26 10:45:00 Outpatient R EBONY ANGELES [facility] [id number] [facility] 2022-09-25 00:00:00 2022-09-25 00:00:00 Telephone [facility] 1.2.840.114 350.1.13.10 4.2.7.2.686 [id number] [facility] 2022-09-21 00:00:00 2022-09-21 00:00:00 Telephone [facility] 1.2.840.114 350.1.13.10 4.2.7.2.686 [id number] [facility] 2022-09-20 11:00:00 2022-09-20 11:15:00 Ui Developer Designer Visit Lab, Ry Patriciafaustino [facility] JETT?[facility] 1.2.840.114 350.1.13.10 4.2.7.2.686 [id number] [facility] 2022-09-20 10:00:00 2022-09-20 10:50:28 Outpatient R EBONY ANGELES [facility] [id number] [facility] 2022-09-20 10:00:00 2022-09-20 10:50:28 Office Visit Ebony Angeles [facility] JETT?[facility] 1.2.840.114 350.1.13.10 4.2.7.2.686 [id number] [facility] 2022-09-20 00:00:00 2022-09-20 00:00:00 Orders Only Doctor Unassigned, [place] [facility] 1.2.840.114 350.1.13.10 4.2.7.2.686 [id number] [facility] 2022-09-03 11:26:00 2022-09-03 16:38:00 Emergency X GALDINO TAVARES [facility] [id number] [facility] 2022-09-03 11:26:00 2022-09-03 16:38:00 Emergency Galdino Tavares [facility] 1.2.840.114 350.1.13.10 4.2.7.2.686 [id number] [facility] 2022-01-01 08:30:00 2022-01-01 09:16:52 [facility] 1.2.840.114 350.1.13.10 4.2.7.2.686 [id number] [facility] 2022-01-01 08:30:00 2022-01-01 09:16:52 Outpatient R EZRA GUEVARA [facility] [id number] [facility] 2022-01-01 08:30:00 2022-01-01 08:30:00 Outpatient R EZRA GUEVARA [facility] [id number] [facility] 2021-11-21 06:37:00 2021-11-21 10:45:00 Outpatient R EZRA GUEVARA [facility] 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 [id number] [facility] 2021-11-21 06:37:00 2021-11-21 10:45:00 Hospital Encounter Ezra Guevara [facility] 1.840.114 350.1.13.10 4.2.7.2.686 [id number] [facility] 2021-11-21 07:45:00 2021-11-21 10:30:00 Surgery Ezra Guevara [facility] 1.2840.114 350.1.13.10 4.2.7.2.686 [id number] [facility] 2021-11-20 12:15:00 2021-11-20 12:30:00 Ui Developer Designer Visit Pob, Adc Lab Main Ezra Guevara [facility] 1.2840.114 350.1.13.10 4.2.7.2.686 [id number] [facility] 2021-11-20 12:15:00 2021-11-20 12:15:00 [facility] [id number] 2021-11-20 10:15:00 2021-11-20 10:30:00 Laboratory Only Only, Adc Test Ezra Guevara [facility] 1.2840.114 350.1.13.10 4.2.7.2.686 [id number] [facility] 2021-11-20 00:00:00 2021-11-20 00:00:00 Orders Only Doctor Unassigned, [place] [facility] 1.840.114 350.1.13.10 4.2.7.2.686 [id number] [facility] 2021-11-15 00:00:00 2021-11-15 00:00:00 Patient Secure Radha Dorsey [facility] 1.840.114 350.1.13.10 4.2.7.2.686 [id number] 134 [id number] [facility] 2021-11-15 00:00:00 2021-11-15 00:00:00 Telephone Ezra Guevara [facility] 1.2.840.114 350.1.13.10 4.2.7.2.686 [id number] 134 [id number] [facility] 2021-10-30 00:00:00 2021-10-30 00:00:00 Telephone Ezra Guevara [facility] 1.2.840.114 350.1.13.10 4.2.7.2.686 [id number] 134 [id number] [facility] 2021-10-27 00:00:00 2021-10-27 00:00:00 Telephone Ezra Guevara [facility] 1.2.840.114 350.1.13.10 4.2.7.2.686 [id number] 134 [id number] [facility] 2021-10-25 00:00:00 2021-10-25 00:00:00 Patient Secure Msg Doctor Unassigned, [place] [facility] 1.2.840.114 350.1.13.10 4.2.7.2.686 [id number] [facility] 2021-10-18 00:00:00 2021-10-18 00:00:00 Prep For Surgery [facility] 1.2.840.114 350.1.13.10 4.2.7.2.686 [id number] 134 [id number] [facility] 2021-10-17 14:00:00 2021-10-17 15:20:53 Office Visit Ezra Guevara [facility] 1.2.840.114 350.1.13.10 4.2.7.2.686 [id number] 134 [id number] [facility] 2021-10-17 14:00:00 2021-10-17 15:20:53 Outpatient R EZRA GUEVARA [facility] [id number] [facility] 2021-10-17 14:00:00 2021-10-17 14:00:00 Outpatient R EZRA GUEVARA [facility] [id number] [facility] 2021-10-17 14:00:00 2021-10-17 14:00:00 Outpatient R EZRA GUEVARA [facility] [id number] [facility] 2021-09-27 09:30:00 2021-09-27 10:11:59 Outpatient R EZRA GUEVARA [facility] [id number] [facility] 2021-09-27 09:30:00 2021-09-27 10:11:59 Office Visit Ezra Guevara [facility] 1.2.840.114 350.1.13.10 4.2.7.2.686 [id number] [facility] 2021-09-27 09:30:00 2021-09-27 10:11:59 Outpatient R EZRA GUEVARA [facility] [id number] [facility] 2021-09-20 09:00:00 2021-09-20 10:24:51 Office Visit Ezra Guevara [facility] 1.2.840.114 350.1.13.10 4.2.7.2.686 [id number] 134 [id number] [facility] 2021-09-20 09:00:00 2021-09-20 10:24:51 Outpatient R EZRA GUEVARA [facility] [id number] [facility] 2021-09-20 09:00:00 2021-09-20 09:00:00 Outpatient R EZRA GUEVARA [facility] [id number] [facility] 2021-09-20 00:00:00 2021-09-20 00:00:00 Orders Only Doctor Unassigned, [place] [facility] 1.2.840.114 350.1.13.10 4.2.7.2.686 [id number] [facility] 2021-08-23 15:45:00 2021-08-23 16:23:41 Outpatient R EZRA GUEVARA [facility] [id number] [facility] 2021-08-23 15:45:00 2021-08-23 16:23:41 Routine Visit Ezra Guevara [facility] BUILDING 1.840.114 350.1.13.10 4.2.7.2.686 [id number] 134 [id number] [facility] 2021-07-24 17:13:00 2021-07-25 23:20:00 [facility] [id number] 2021-07-24 17:13:00 2021-07-25 23:20:00 Hospital Encounter Ezra Guevara [facility] 1.84.114 350.1.13.10 4.2.7.2.686 [id number] [facility] 2021-07-24 14:30:00 2021-07-24 14:45:00 Nurse Visit Nurse, [facility] Ezra Guevara [facility] BUILDING 1.840.114 350.1.13.10 4.2.7.2.686 [id number] 134 [id number] [facility] 2021-07-24 14:30:00 2021-07-24 14:30:00 Outpatient R EZRA GUEVARA [facility] [id number] [facility] 2021-07-17 00:00:00 2021-07-17 00:00:00 [facility]ill [facility] 1.2840.114 350.1.13.10 4.2.7.2.686 [id number] [facility] 2021-07-11 15:39:00 2021-07-13 13:45:00 Hospital Encounter Ezra Guevara Vivian L [facility] 1.2.840.114 350.1.13.10 4.2.7.2.686 [id number] [facility] 2021-07-11 15:39:00 2021-07-13 13:45:00 Inpatient P LISBETH SZYMANSKI [facility] [id number] [facility] 2021-07-13 10:00:00 2021-07-13 10:00:00 Outpatient R [facility] [id number] [facility] 2021-07-11 23:55:00 2021-07-12 04:25:00 Anesthesia Event ChurchillDakota Britton [facility] 1.2.840.114 350.1.13.10 4.2.7.2.686 [id number] [facility] 2021-07-11 00:00:00 2021-07-11 00:00:00 Telephone Ezra Guevara [facility] 1.2840.114 350.1.13.10 4.2.7.2.686 [id number] [facility] 2021-07-11 00:00:00 2021-07-11 00:00:00 Orders Only Doctor Unassigned, [place] [facility] 1.2.840.114 350.1.13.10 4.2.7.2.686 [id number] [facility] 2021-07-10 10:11:36 2021-07-10 11:01:40 Routine Visit Room, [facility] Ezra Guevara [facility] 1.2840.114 350.1.13.10 4.2.7.2.686 [id number] 134 [id number] [facility] 2021-07-10 10:00:00 2021-07-10 11:01:40 [facility] [id number] [facility] 2021-07-06 13:00:00 2021-07-06 11:55:50 Outpatient R EZRA GUEVARA [facility] [id number] [facility] 2021-07-06 10:59:07 2021-07-06 11:55:50 Routine Visit Room, [facility] Ismael [facility] 1.2.840.114 350.1.13.10 4.2.7.2.686 [id number] 134 [id number] [facility] 2021-07-03 10:04:23 2021-07-03 10:56:47 Routine Visit Room, [facility] Ismael [facility] 1.2.840.114 350.1.13.10 4.2.7.2.686 [id number] 134 [id number] [facility] 2021-07-03 10:00:00 2021-07-03 10:56:47 Outpatient R EZRA GUEVARA [facility] [id number] [facility] 2021-06-29 09:48:44 2021-06-29 10:03:44 Routine Visit Room, [facility] Jose Mandujano [facility] 1.2.840.114 350.1.13.10 4.2.7.2.686 [id number] 134 [id number] [facility] 2021-06-29 08:34:47 2021-06-29 09:04:47 Ui Developer Designer Visit Ultrasound, NoraJose Lopes Antonio F [facility] WEB APPLICATIONS [facility] 1.840.114 350.1.13.10 4.2.7.2.686 [id number] [facility] 2021-06-29 08:30:00 2021-06-29 09:02:36 Outpatient P OTILIA LEMUS [facility] [id number] [facility] 2021-06-27 00:00:00 2021-06-27 00:00:00 [facility] 1..840.114 350.1.13.10 4.2.7.2.686 [id number] 134 [id number] [facility] 2021-06-26 11:15:00 2021-06-26 15:30:00 Outpatient P EZRA GUEVARA [facility] [id number] [facility] 2021-06-26 11:15:00 2021-06-26 15:30:00 Hospital Encounter Ezra Guevara [facility] 1..840.114 350.1.13.10 4.2.7.2.686 [id number] [facility] 2021-06-26 10:11:09 2021-06-26 10:59:33 Routine Visit Room, [facility] Ezra Guevara [facility] 1..840.114 350.1.13.10 4.2.7.2.686 [id number] [facility] 2021-06-26 10:00:00 2021-06-26 10:59:33 Outpatient R EZRA GUEVARA [facility] [id number] [facility] 2021-06-21 10:06:33 2021-06-21 11:41:10 Routine Visit Room, [facility] Ismael [facility] 1..840.114 350.1.13.10 4.2.7.2.686 [id number] 134 [id number] [facility] 2021-06-21 10:00:00 2021-06-21 11:41:10 Outpatient R EZRA GUEVARA [facility] [id number] [facility] 2021-06-20 00:00:00 2021-06-20 00:00:00 Orders Only Doctor Unassigned, [place] [facility] 1.2.114 350.1.13.10 4.2.7.2.686 [id number] [facility] 2021-06-19 10:08:27 2021-06-19 11:17:51 Routine Visit Room, [facility] 1.284.114 350.1.13.10 4.2.7.2.686 [id number] 134 [id number] [facility] 2021-06-19 10:00:00 2021-06-19 11:17:51 Outpatient R [facility] [id number] [facility] 2021-06-16 10:33:36 2021-06-16 11:49:40 Routine Visit Room, [facility] Ismael [facility] BUILDING 1.284.114 350.1.13.10 4.2.7.2.686 [id number] [facility] 2021-06-16 10:00:00 2021-06-16 11:49:40 [facility] [id number] [facility] 2021-06-15 10:00:00 2021-06-15 10:00:00 Outpatient R [facility] [id number] [facility] 2021-06-12 10:05:56 2021-06-12 11:09:21 Routine Visit Room, [facility] 1.2.84.114 350.1.13.10 4.2.7.2.686 [id number] 134 [id number] [facility] 2021-06-12 10:00:00 2021-06-12 11:09:21 Outpatient R EZRA GUEVARA [facility] [id number] [facility] 2021-06-08 10:08:59 2021-06-08 10:59:47 Routine Visit Room, [facility] 1.2.840.114 350.1.13.10 4.2.7.2.686 [id number] 134 [id number] [facility] 2021-06-08 10:00:00 2021-06-08 10:59:47 Outpatient R EZRA GUEVARA [facility] [id number] [facility] 2021-06-05 10:06:11 2021-06-05 10:21:11 Routine Visit Room, [facility] Ismael [facility] 1.2.840.114 350.1.13.10 4.2.7.2.686 [id number] 134 [id number] [facility] 2021-06-05 10:00:00 2021-06-05 10:00:00 Outpatient R EZRA GUEVARA [facility] [id number] [facility] 2021-06-01 10:03:57 2021-06-01 10:59:20 Routine Visit Room, [facility] 1.2.840.114 350.1.13.10 4.2.7.2.686 [id number] [facility] 2021-06-01 10:00:00 2021-06-01 10:59:20 Outpatient R EZRA GUEVARA [facility] [id number] [facility] 2021-06-01 10:00:00 2021-06-01 10:00:00 Outpatient R [facility] [id number] [facility] 2021-05-31 09:23:27 2021-05-31 09:53:27 Ui Developer Designer Visit Ultrasound, Ry-Jose Thomas [facility] WEB APPLICATIONS [facility] 1.284.114 350.1.13.10 4.2.7.2.686 [id number] [facility] 2021-05-31 09:30:00 2021-05-31 09:30:00 Outpatient P MARIA G Jarquin GARCIA [facility] [id number] [facility] 2021-05-29 10:15:13 2021-05-29 11:35:15 Routine Visit Room, [facility] Ismael [facility] 1.84.114 350.1.13.10 4.2.7.2.686 [id number] [facility] 2021-05-29 10:00:00 2021-05-29 11:35:15 Outpatient R EZRA GUEVARA [facility] [id number] [facility] 2021-05-29 10:00:00 2021-05-29 10:00:00 Outpatient R [facility] [id number] [facility] 2021-05-24 10:11:08 2021-05-24 11:46:16 Routine Visit Room, [facility] 1..84.114 350.1.13.10 4.2.7.2.686 [id number] 134 [id number] [facility] 2021-05-24 10:00:00 2021-05-24 10:00:00 Outpatient R [facility] [id number] [facility] 2021-05-10 10:32:50 2021-05-10 10:47:50 Routine Visit Keya Torres [facility] 1..840.114 350.1.13.10 4.2.7.2.686 [id number] 134 [id number] [facility] 2021-05-10 10:30:00 2021-05-10 10:30:00 Outpatient R KEYA TORRES [facility] [id number] [facility] 2021-05-04 08:27:25 2021-05-04 11:28:02 Ui Developer Designer Visit 2, [facility] Ismael Ezra Chilo [facility] 1.2.840.114 350.1.13.10 4.2.7.2.686 [id number] [facility] 2021-05-04 08:30:00 2021-05-04 08:30:00 Outpatient R [facility] [id number] [facility] 2021-05-04 00:00:00 2021-05-04 00:00:00 Case Management Keya Torres [facility] 1.2.840.114 350.1.13.10 4.2.7.2.686 [id number] 134 [id number] [facility] 2021-05-04 00:00:00 2021-05-04 00:00:00 Telephone Ayana Dean [facility] WEB APPLICATIONS [facility] 1.2.840.114 350.1.13.10 4.2.7.2.686 [id number] [facility] 2021-05-03 09:54:46 2021-05-03 10:24:46 Ui Developer Designer Visit Ultrasound, Jose Bryson [facility] WEB APPLICATIONS DEV[facility]OPER [facility] 1.2.840.114 350.1.13.10 4.2.7.2.686 [id number] [facility] 2021-05-03 10:00:00 2021-05-03 10:00:00 Outpatient P [facility] [id number] [facility] 2021-04-28 00:00:2021-04-28 00:00:00 Telephone Keya Torres [facility] 1.2.840.114 350.1.13.10 4.2.7.2.686 [id number] 134 [id number] [facility] 2021-04-27 11:06:35 2021-04-27 11:52:59 Routine Visit Ezra Guevara [facility] 1.2.840.114 350.1.13.10 4.2.7.2.686 [id number] 134 [id number] [facility] 2021-04-27 11:15:00 2021-04-27 11:15:00 Outpatient R EZRA GUEVARA [facility] [id number] [facility] 2021-04-27 10:00:02 2021-04-27 10:15:02 Ui Developer Designer Visit 2, [facility] Ezra Guevara [facility] 1.2.840.114 350.1.13.10 4.2.7.2.686 [id number] [facility] 2021-04-27 00:00:00 2021-04-27 00:00:00 Case Management Ezra Guevara [facility] 1.2.840.114 350.1.13.10 4.2.7.2.686 [id number] 134 [id number] [facility] 2021-04-10 09:00:00 2021-04-10 09:00:00 Outpatient R AYANA DEAN [facility] [id number] [facility] 2021-04-10 09:00:00 2021-04-10 09:00:00 Outpatient R AYANA DEAN [facility] [id number] [facility] 2021-04-07 10:43:14 2021-04-07 14:16:00 Telemedici ne Visit Naren Richmond Otto W [facility] WEB APPLICATIONS [facility] 1.84.114 350.1.13.10 4.2.7.2.686 [id number] [facility] 2021-04-07 10:30:00 2021-04-07 10:30:00 Outpatient P [facility] [id number] [facility] 2021-03-29 14:13:25 2021-03-29 15:37:34 Initial Visit Ezra Guevara [facility] 1.84.114 350.1.13.10 4.2.7.2.686 [id number] [facility] 2021-03-29 14:00:00 2021-03-29 14:00:00 Outpatient R EZRA GUEVARA [facility] [id number] [facility] 2021-03-29 14:00:00 2021-03-29 14:00:00 Outpatient R EZRA GUEVARA [facility] [id number] [facility] 2021-03-16 09:00:00 2021-03-16 09:00:00 Outpatient P ALVIN MORRISON [facility] [id number] Con s [facility] 2021-03-16 00:00:00 2021-03-16 00:00:00 Telephone Danita Valadez [facility] [place] 1.84.114 350.1.13.10 4.2.7.2.686 [id number] [facility] 2021-03-13 08:21:42 2021-03-13 08:49:50 Routine Visit Ayana Dean [facility] WEB APPLICATIONS [facility] 1..114 350.1.13.10 4.2.7.2.686 [id number] 107 [id number] [facility] 2021-03-13 08:00:00 2021-03-13 08:49:50 Outpatient R AYANA DEAN [facility] [id number] [facility] 2021-03-13 08:00:00 2021-03-13 08:00:00 Outpatient R AYANA DEAN [facility] [id number] [facility] 2021-03-09 00:00:00 2021-03-09 00:00:00 Abstract Ayana Dean [facility] WEB APPLICATIONS DEVELOPER [facility] CHILD [facility] 1.0.114 350.1.13.10 4.2.7.2.686 [id number] 107 [id number] [facility] 2021-03-06 09:27:49 2021-03-06 10:42:49 Ui Developer Designer Visit Ultrasound, Amaris Rosenberg [facility] WEB APPLICATIONS [facility] 1..114 350.1.13.10 4.2.7.2.686 [id number] [facility] 2021-03-06 09:30:00 2021-03-06 09:30:00 Outpatient P [facility] [id number] [facility] 2021-02-16 00:00:00 2021-02-16 00:00:00 Telephone Ayana Dean [facility] WEB APPLICATIONS DEVELOPER [facility] CHILD [facility] 1..114 350.1.13.10 4.2.7.2.686 [id number] 107 [id number] [facility] 2021-02-14 00:00:00 2021-02-14 00:00:00 Telephone Ayana Dean [facility] WEB APPLICATIONS DEVELOPER [facility]ILD [facility] 1..114 350.1.13.10 4.2.7.2.686 [id number] 107 [id number] [facility] 2021-02-14 00:00:00 2021-02-14 00:00:00 Telephone Ayana Dean [facility] WEB APPLICATIONS DEVELOPER [facility] CHILD [facility] 1.2.840.114 350.1.13.10 4.2.7.2.686 [id number] 107 [id number] [facility] 2021-02-13 09:35:57 2021-02-13 09:50:57 Routine Visit Ayana Dean [facility] WEB APPLICATIONS [facility] 1.114 350.1.13.10 4.2.7.2.686 [id number] [facility] 2021-02-13 09:30:00 2021-02-13 09:30:00 Outpatient R AYANA DEAN [facility] [id number] [facility] 2021-01-16 09:33:39 2021-01-16 10:29:59 Routine Visit Ayana Dean [facility] WEB APPLICATIONS DEVELOPER [facility] CHILD [facility] 1.114 350.1.13.10 4.2.7.2.686 [id number] [facility] 2021-01-16 09:00:00 2021-01-16 09:00:00 Outpatient R AYANA DEAN [facility] [id number] [facility] 2021-01-10 11:33:37 2021-01-10 11:55:00 Office Visit Res[facility]Colpo[facility] .114 350.1.13.10 4.2.7.2.686 [id number] [facility] 2021-01-10 11:00:00 2021-01-10 11:00:00 Outpatient R [facility] [id number] [facility] 2021-01-10 00:00:00 2021-01-10 00:00:00 Orders Only Doctor Unassigned, [place] [facility] .114 350.1.13.10 4.2.7.2.686 [id number] [facility] 2021-01-06 11:20:07 2021-01-06 12:05:07 Ui Developer Designer Visit 1, Jckalyn Room CabreraYahir gomez [facility] WEB APPLICATIONS [facility] 1.2.840.114 350.1.13.10 4.2.7.2.686 [id number] [facility] 2021-01-06 11:21:49 2021-01-06 11:56:44 Ui Developer Designer Visit [facility], [facility] WEB APPLICATIONS [facility] 1.2840.114 350.1.13.10 4.2.7.2.686 [id number] [facility] 2021-01-06 11:00:00 2021-01-06 11:00:00 Outpatient P [facility] [id number] [facility] 2021-01-06 00:00:00 2021-01-06 00:00:00 Abstract Ayana Dean [facility] WEB APPLICATIONS DEVELOPER [facility] CHILD [facility] 1.840.114 350.1.13.10 4.2.7.2.686 [id number] [facility] 2021-01-05 00:00:00 2021-01-05 00:00:00 Telephone Ayana Dean [facility] WEB APPLICATIONS DEVELOPER [facility] 1.2840.114 350.1.13.10 4.2.7.2.686 [id number] 107 [id number] [facility] 2020-12-30 00:00:00 2020-12-30 00:00:00 Telephone Ayana Dean [facility] WEB APPLICATIONS DEV[facility]OPER [facility]ILD [facility] 1.2.840.114 350.1.13.10 4.2.7.2.686 [id number] 107 [id number] [facility] 2020-12-29 00:00:00 2020-12-29 00:00:00 Patient Secure Msg Ayana Dean [facility] WEB APPLICATIONS DEV[facility]OPER [facility] CHILD [facility] 1.2.840.114 350.1.13.10 4.2.7.2.686 [id number] 107 [id number] [facility] 2020-12-19 09:09:59 2020-12-19 10:11:06 Routine Visit Ayana Dean [facility] WEB APPLICATIONS DEVELOPER [facility]ILD [facility] 1.2.840.114 350.1.13.10 4.2.7.2.686 [id number] 107 [id number] [facility] 2020-12-19 09:00:00 2020-12-19 09:00:00 Outpatient R AYANA DEAN [facility] [id number] [facility] 2020-12-19 00:00:00 2020-12-19 00:00:00 Patient Secure Msg Ayana Dean [facility] WEB APPLICATIONS DEVELOPER [facility] 1.2.840.114 350.1.13.10 4.2.7.2.686 [id number] [facility] 2020-12-09 00:00:00 2020-12-09 00:00:00 Abstract Ayana Dean [facility] WEB APPLICATIONS DEVELOPER [facility] 1.2.840.114 350.1.13.10 4.2.7.2.686 [id number] [facility] 2020-12-08 09:34:00 2020-12-08 10:04:00 Ui Developer Designer Visit Ultrasound, Amaris Rosenberg [facility] WEB APPLICATIONS DEVELOPER [facility] 1.2.840.114 350.1.13.10 4.2.7.2.686 [id number] [facility] 2020-12-08 09:30:00 2020-12-08 09:30:00 Outpatient P [facility] [id number] [facility] 2020-11-29 00:00:00 2020-11-29 00:00:00 Telephone Ayana Dean [facility] WEB APPLICATIONS DEVELOPER [facility] 1.2840.114 350.1.13.10 4.2.7.2.686 [id number] [facility] 2020-11-23 08:12:10 2020-11-23 08:28:07 Ui Developer Designer Visit Lab, [facility] Ayana Dean [facility] WEB APPLICATIONS DEVELOPER [facility] 1.0.114 350.1.13.10 4.2.7.2.686 [id number] 107 [id number] [facility] 2020-11-23 08:00:00 2020-11-23 08:28:07 Outpatient R AYANA DEAN [facility] [id number] [facility] 2020-11-23 08:00:00 2020-11-23 08:28:07 Outpatient R AYANA DEAN [facility] [id number] [facility] 2020-11-23 08:00:00 2020-11-23 08:00:00 Outpatient R AYANA DEAN [facility] [id number] [facility] 2020-11-22 00:00:00 2020-11-22 00:00:00 Telephone Ayana Dean [facility] WEB APPLICATIONS DEVELOPER [facility] .0.114 350.1.13.10 4.2.7.2.686 [id number] 107 [id number] [facility] 2020-11-21 08:38:42 2020-11-21 09:55:46 Initial Visit [facility] [facility] [id number] [id number] [facility] 2020-11-21 08:30:00 2020-11-21 08:30:00 Outpatient R AYANA DEAN [facility] [id number] [facility] 2020-11-21 00:00:00 2020-11-21 00:00:00 Orders Only Doctor Unassigned, [place] [facility] [id number] [facility] Results Test Description Test Time Test Comments Results Result Co mments Source [facility] [id number] 15:55:00* Test Item Value Reference Range Interpretation Comme nts POCT PREG (test code = 1605) Negative On board controls acceptable with C Line (test code = 3574) Yes POCT PREG LOT # (test code = 3575) POCT PREG TEST DATE ( test code = 3576) [facility] [id number] 21:23:00* Test Item Value Reference Range Interpretation Comme nts POCT PREG (test code = 1605) Positive On board controls acceptable with C Line (test code = 3574) Yes POCT PREG LOT # (test code = 3575) POCT PREG TEST DATE ( test code = 3576) [facility] URINALYSIS W SPECIFIC [id number] 21:21:00* Test Item Value Reference Range Interpretation Comme nts POCT U SP GRAV (test code = 3255) 1.020 mg/dl 1.005-1.025 POCT PH U (test code = 3254) 5 mg/dl 5-8 POCT U LEUK EST (test code = 3263) trace Negative - Negative POCT U NIT (test code = 3262) negative Negative - Negative POCT U PROT (test code = 3259) trace Negative - Negative POCT U GLU (test code = 3256) negative Negative - Negative POCT U KETONE (test code = 3258) negative Negative - Negative POCT U UROBILI (test code = 3260) normal 0.2-1 POCT U BILI (test code = 3261) negative Negative - Negative POCT U BLD (test code = 3257) trace Negative - Negative POCT U COLOR (test code = 3266) yellow POCT U APPEAR (test code = 3267) clear LISANDRA (test code = LISANDRA) accurate developme nt and interpretation of all internal controls Lab Interpretation (test code = 38425-0) Abnormal [facility] WITH [id number] 21:12:01* Test Item Value Reference Range Interpretation Comme nts WBC (test code = 6690-2) 9.93 See_Comment [Automated messa ge] The system which generated this result transmitted reference range: 4.30 - 11.10 10*3/?L. The reference range was not used to interpret this result as normal/abnormal. RBC (test code = 789-8) 4.82 See_Comment [Automated messa ge] The system which generated this result transmitted reference range: 3.93 - 5.25 10*6/?L. The reference range was not used to interpret this result as normal/abnormal. HGB (test code = 718-7) 12.6 g/dL 11.6-15.0 HCT (test code = 4544-3) 40.4 % 35.7-45.2 MCV (test code = 787-2) 83.8 fL 80.6-95.5 MCH (test code = 785-6) 26.1 pg 25.9-32.8 MCHC (test code = 786-4) 31.2 g/dL 31.6-35.1 L RDW-SD (test code = 84602-5) 47.0 fL 39.0-49.9 RDW-CV (test code = 788-0) 15.5 % 12.0-15.5 PLT (test code = 777-3) 409 See_Comment H [Automated messa ge] The system which generated this result transmitted reference range: 166 - 358 10*3/?L. The reference range was not used to interpret this result as normal/abnormal. MPV (test code = 01582-5) 10.2 fL 9.5-12.9 NRBC/100 WBC (test code = 5510559455) 0.0 See_Comment [Automated me ssage] The system which generated this result transmitted reference range: 0.0 - 10.0 /100 WBCs. The reference range was not used to interpret this result as normal/abnormal. NRBC x10^3 (test code = 6456888063) See_Comment [Automated messa ge] The system which generated this result transmitted reference range: 10*3/?L. The reference range was not used to interpret this result as normal/abnormal. GRAN MAT (NEUT) % (test code = 770-8) 68.5 % IMM GRAN % (test code = 7232715261) 0.50 % LYMPH % (test code = 736-9) 24.4 % MONO % (test code = 5905-5) 5.7 % EOS % (test code = 713-8) 0.3 % BASO % (test code = 706-2) 0.6 % GRAN MAT x10^3(ANC) (test code = 9458235932) 6.80 10*3/uL 1.88-7.09 IMM GRAN x10^3 (test code = 1867607180) 0.05 10*3/uL 0.00-0.06 LYMPH x10^3 (test code = 731-0) 2.42 10*3/uL 1.32-3.29 MONO x10^3 (test code = 742-7) 0.57 10*3/uL 0.33-0.92 EOS x10^3 (test code = 711-2) 0.03 10*3/uL 0.03-0.39 BASO x10^3 (test code = 704-7) 0.06 10*3/uL 0.01-0.07 Lab Interpretation (test code = 21135-2) Abnormal [facility] WITH [id number] 21:12:01* Test Item Value Reference Range Interpretation Comme nts WBC (test code = 6690-2) 9.93 See_Comment [Automated messa ge] The system which generated this result transmitted reference range: 4.30 - 11.10 10*3/?L. The reference range was not used to interpret this result as normal/abnormal. RBC (test code = 789-8) 4.82 See_Comment [Automated messa ge] The system which generated this result transmitted reference range: 3.93 - 5.25 10*6/?L. The reference range was not used to interpret this result as normal/abnormal. HGB (test code = 718-7) 12.6 g/dL 11.6-15.0 HCT (test code = 4544-3) 40.4 % 35.7-45.2 MCV (test code = 787-2) 83.8 fL 80.6-95.5 MCH (test code = 785-6) 26.1 pg 25.9-32.8 MCHC (test code = 786-4) 31.2 g/dL 31.6-35.1 L RDW-SD (test code = 93692-3) 47.0 fL 39.0-49.9 RDW-CV (test code = 788-0) 15.5 % 12.0-15.5 PLT (test code = 777-3) 409 See_Comment H [Automated messa ge] The system which generated this result transmitted reference range: 166 - 358 10*3/?L. The reference range was not used to interpret this result as normal/abnormal. MPV (test code = 80555-0) 10.2 fL 9.5-12.9 NRBC/100 WBC (test code = 8229459002) 0.0 See_Comment [Automated [employer] ssage] The system which generated this result transmitted reference range: 0.0 - 10.0 /100 WBCs. The reference range was not used to interpret this result as normal/abnormal. NRBC x10^3 (test code = 7565387878) See_Comment [Automated messa ge] The system which generated this result transmitted reference range: 10*3/?L. The reference range was not used to interpret this result as normal/abnormal. GRAN MAT (NEUT) % (test code = 770-8) 68.5 % IMM GRAN % (test code = 9936729285) 0.50 % LYMPH % (test code = 736-9) 24.4 % MONO % (test code = 5905-5) 5.7 % EOS % (test code = 713-8) 0.3 % BASO % (test code = 706-2) 0.6 % GRAN MAT x10^3(ANC) (test code = 0578751441) 6.80 10*3/uL 1.88-7.09 IMM GRAN x10^3 (test code = 4074216324) 0.05 10*3/uL 0.00-0.06 LYMPH x10^3 (test code = 731-0) 2.42 10*3/uL 1.32-3.29 MONO x10^3 (test code = 742-7) 0.57 10*3/uL 0.33-0.92 EOS x10^3 (test code = 711-2) 0.03 10*3/uL 0.03-0.39 BASO x10^3 (test code = 704-7) 0.06 10*3/uL 0.01-0.07 Lab Interpretation (test code = 87658-5) Abnormal [facility] WITH [id number] 21:12:01* Test Item Value Reference Range Interpretation Comme nts WBC (test code = 6690-2) 9.93 See_Comment [Automated messa ge] The system which generated this result transmitted reference range: 4.30 - 11.10 10*3/?L. The reference range was not used to interpret this result as normal/abnormal. RBC (test code = 789-8) 4.82 See_Comment [Automated messa ge] The system which generated this result transmitted reference range: 3.93 - 5.25 10*6/?L. The reference range was not used to interpret this result as normal/abnormal. HGB (test code = 718-7) 12.6 g/dL 11.6-15.0 HCT (test code = 4544-3) 40.4 % 35.7-45.2 MCV (test code = 787-2) 83.8 fL 80.6-95.5 MCH (test code = 785-6) 26.1 pg 25.9-32.8 MCHC (test code = 786-4) 31.2 g/dL 31.6-35.1 L RDW-SD (test code = 93339-6) 47.0 fL 39.0-49.9 RDW-CV (test code = 788-0) 15.5 % 12.0-15.5 PLT (test code = 777-3) 409 See_Comment H [Automated messa ge] The system which generated this result transmitted reference range: 166 - 358 10*3/?L. The reference range was not used to interpret this result as normal/abnormal. MPV (test code = 01915-8) 10.2 fL 9.5-12.9 NRBC/100 WBC (test code = 2571691095) 0.0 See_Comment [Automated me ssage] The system which generated this result transmitted reference range: 0.0 - 10.0 /100 WBCs. The reference range was not used to interpret this result as normal/abnormal. NRBC x10^3 (test code = 2500319652) See_Comment [Automated messa ge] The system which generated this result transmitted reference range: 10*3/?L. The reference range was not used to interpret this result as normal/abnormal. GRAN MAT (NEUT) % (test code = 770-8) 68.5 % IMM GRAN % (test code = 6761176188) 0.50 % LYMPH % (test code = 736-9) 24.4 % MONO % (test code = 5905-5) 5.7 % EOS % (test code = 713-8) 0.3 % BASO % (test code = 706-2) 0.6 % GRAN MAT x10^3(ANC) (test code = 1022534736) 6.80 10*3/uL 1.88-7.09 IMM GRAN x10^3 (test code = 4589116822) 0.05 10*3/uL 0.00-0.06 LYMPH x10^3 (test code = 731-0) 2.42 10*3/uL 1.32-3.29 MONO x10^3 (test code = 742-7) 0.57 10*3/uL 0.33-0.92 EOS x10^3 (test code = 711-2) 0.03 10*3/uL 0.03-0.39 BASO x10^3 (test code = 704-7) 0.06 10*3/uL 0.01-0.07 Lab Interpretation (test code = 07179-3) Abnormal [facility] WITH [id number] 21:12:01* Test Item Value Reference Range Interpretation Comme nts WBC (test code = 6690-2) 9.93 See_Comment [Automated messa ge] The system which generated this result transmitted reference range: 4.30 - 11.10 10*3/?L. The reference range was not used to interpret this result as normal/abnormal. RBC (test code = 789-8) 4.82 See_Comment [Automated [employer] ge] The system which generated this result transmitted reference range: 3.93 - 5.25 10*6/?L. The reference range was not used to interpret this result as normal/abnormal. HGB (test code = 718-7) 12.6 g/dL 11.6-15.0 HCT (test code = 4544-3) 40.4 % 35.7-45.2 MCV (test code = 787-2) 83.8 fL 80.6-95.5 MCH (test code = 785-6) 26.1 pg 25.9-32.8 MCHC (test code = 786-4) 31.2 g/dL 31.6-35.1 L RDW-SD (test code = 07355-4) 47.0 fL 39.0-49.9 RDW-CV (test code = 788-0) 15.5 % 12.0-15.5 PLT (test code = 777-3) 409 See_Comment H [Automated [employer] ge] The system which generated this result transmitted reference range: 166 - 358 10*3/?L. The reference range was not used to interpret this result as normal/abnormal. MPV (test code = 03699-5) 10.2 fL 9.5-12.9 NRBC/100 WBC (test code = 3175151470) 0.0 See_Comment [Automated [employer] ssage] The system which generated this result transmitted reference range: 0.0 - 10.0 /100 WBCs. The reference range was not used to interpret this result as normal/abnormal. NRBC x10^3 (test code = 6600882691) See_Comment [Automated [employer] ge] The system which generated this result transmitted reference range: 10*3/?L. The reference range was not used to interpret this result as normal/abnormal. GRAN MAT (NEUT) % (test code = 770-8) 68.5 % IMM GRAN % (test code = 8375855350) 0.50 % LYMPH % (test code = 736-9) 24.4 % MONO % (test code = 5905-5) 5.7 % EOS % (test code = 713-8) 0.3 % BASO % (test code = 706-2) 0.6 % GRAN MAT x10^3(ANC) (test code = 8900744006) 6.80 10*3/uL 1.88-7.09 IMM GRAN x10^3 (test code = 8409713536) 0.05 10*3/uL 0.00-0.06 LYMPH x10^3 (test code = 731-0) 2.42 10*3/uL 1.32-3.29 MONO x10^3 (test code = 742-7) 0.57 10*3/uL 0.33-0.92 EOS x10^3 (test code = 711-2) 0.03 10*3/uL 0.03-0.39 BASO x10^3 (test code = 704-7) 0.06 10*3/uL 0.01-0.07 Lab Interpretation (test code = 26737-6) [facility] ([id number][facility] 20:28:36* Test Item Value Reference Range Interpretation Comme nts NA (test code = 1720763826) 142 mmol/L 135-145 K (test code = 6962445544) 5.3 mmol/L 3.5-5.0 H CL (test code = 4276413621) 108 mmol/L 98-108 CO2 TOTAL (test code = 8368491466) 22 mmol/L 23-31 L AGAP (test code = 4483540047) 12 2-16 BUN (test code = 8377677526) 10 mg/dL 7-23 GLUCOSE (test code = 7488016060) 102 mg/dL 70-110 CREATININE (test code = 7132575623) 0.99 mg/dL 0.50-1.04 TOTAL BILI (test code = 1748915024) 0.9 mg/dL 0.1-1.1 CALCIUM (test code = 3314947388) 9.9 mg/dL 8.6-10.6 T PROTEIN (test code = 3612194816) 8.4 g/dL 6.3-8.2 H ALBUMIN (test code = 7242243819) 4.7 g/dL 3.5-5.0 ALK PHOS (test code = 4633849295) 88 U/L 34-122 ALTv (test code = 1742-6) 17 U/L 5-35 AST(SGOT) (test code = 0743667842) 23 U/L 13-40 eGFR (test code = 7305439110) 61.8 mL/min/1.73m2 LISANDRA (test code = LISANDRA) Association of Glomerular Filtration Rate (GFR) and Staging of Kidney Disease* + --+ --+ ------+| GFR (mL/min/1.73 m2) ?| With Kidney Damage ?| ?Without Kidney Damage+ --------+ --------+ +| ?>90 ?| ?Stage one ?| ? Normal ?+ ---+ ---+ -------+| ?60-89 ?| ?Stage two ?| ? Decreased GFR ? + --+ --+ ------+| ?30-59 ?| ?Stage three ?| ? Stage three ? + --+ --+ ------+| ?15-29 ?| ?Stage four ? | ? Stage four ?+ ---+ ---+ -------+| ?<15 (or dialysis) ? ?| ?Stage five ? | ? Stage five ?+ ---+ ---+ -------+ *Each stage assumes the associated GFR level has been in effect for at least three months. ?Stages 1 to 5, with or without kidney disease, indicate chronic kidney disease. Notes: Determination of stages one and two (with eGFR >59mL/min/1.73 m2) requires estimation of kidney damage for at least three months as defined by structural or functional abnormalities of the kidney, manifested by either:Pathological abnormalities or Markers of kidney damage (including abnormalities in the composition of the blood or urine or abnormalities in imaging tests). Lab Interpretation (test code = 19274-7) Abnormal [facility]. METABOLIC PANEL ([id number])2022-09-20 20:28:36* Test Item Value Reference Range Interpretation Comme nts NA (test code = 9770974142) 142 mmol/L 135-145 K (test code = 7014572300) 5.3 mmol/L 3.5-5.0 H CL (test code = 3981793187) 108 mmol/L 98-108 CO2 TOTAL (test code = 8918553860) 22 mmol/L 23-31 L AGAP (test code = 1456692430) 12 2-16 BUN (test code = 9068968234) 10 mg/dL 7-23 GLUCOSE (test code = 7610502154) 102 mg/dL 70-110 CREATININE (test code = 1185878798) 0.99 mg/dL 0.50-1.04 TOTAL BILI (test code = 4633497671) 0.9 mg/dL 0.1-1.1 CALCIUM (test code = 8961078792) 9.9 mg/dL 8.6-10.6 T PROTEIN (test code = 9290995995) 8.4 g/dL 6.3-8.2 H ALBUMIN (test code = 4098182578) 4.7 g/dL 3.5-5.0 ALK PHOS (test code = 5662094842) 88 U/L 34-122 ALTv (test code = 1742-6) 17 U/L 5-35 AST(SGOT) (test code = 2458372211) 23 U/L 13-40 eGFR (test code = 5852787208) 61.8 mL/min/1.73m2 LISANDRA (test code = LISANDRA) Association of Glomerular Filtration Rate (GFR) and Staging of Kidney Disease* + --+ --+ ------+| GFR (mL/min/1.73 m2) ?| With Kidney Damage ?| ?Without Kidney Damage+ --------+ --------+ +| ?>90 ?| ?Stage one ?| ? Normal ?+ ---+ ---+ -------+| ?60-89 ?| ?Stage two ?| ? Decreased GFR ? + --+ --+ ------+| ?30-59 ?| ?Stage three ?| ? Stage three ? + --+ --+ ------+| ?15-29 ?| ?Stage four ? | ? Stage four ?+ ---+ ---+ -------+| ?<15 (or dialysis) ? ?| ?Stage five ? | ? Stage five ?+ ---+ ---+ -------+ *Each stage assumes the associated GFR level has been in effect for at least three months. ?Stages 1 to 5, with or without kidney disease, indicate chronic kidney disease. Notes: Determination of stages one and two (with eGFR >59mL/min/1.73 m2) requires estimation of kidney damage for at least three months as defined by structural or functional abnormalities of the kidney, manifested by either:Pathological abnormalities or Markers of kidney damage (including abnormalities in the composition of the blood or urine or abnormalities in imaging tests). Lab Interpretation (test code = 47850-1) Abnormal [facility]. METABOLIC PANEL ([id number])2022-09-20 20:28:36* Test Item Value Reference Range Interpretation Comme nts NA (test code = 4999922751) 142 mmol/L 135-145 K (test code = 2507705897) 5.3 mmol/L 3.5-5.0 H CL (test code = 2630802443) 108 mmol/L 98-108 CO2 TOTAL (test code = 4105021175) 22 mmol/L 23-31 L AGAP (test code = 9956410452) 12 2-16 BUN (test code = 4000389085) 10 mg/dL 7-23 GLUCOSE (test code = 8617291782) 102 mg/dL 70-110 CREATININE (test code = 7617473791) 0.99 mg/dL 0.50-1.04 TOTAL BILI (test code = 0664525454) 0.9 mg/dL 0.1-1.1 CALCIUM (test code = 9684635361) 9.9 mg/dL 8.6-10.6 T PROTEIN (test code = 3716040369) 8.4 g/dL 6.3-8.2 H ALBUMIN (test code = 4820106205) 4.7 g/dL 3.5-5.0 ALK PHOS (test code = 6049184335) 88 U/L 34-122 ALTv (test code = 1742-6) 17 U/L 5-35 AST(SGOT) (test code = 0986678681) 23 U/L 13-40 eGFR (test code = 2567027558) 61.8 mL/min/1.73m2 LISANDRA (test code = LISANDRA) Association of Glomerular Filtration Rate (GFR) and Staging of Kidney Disease* + --+ --+ ------+| GFR (mL/min/1.73 m2) ?| With Kidney Damage ?| ?Without Kidney Damage+ --------+ --------+ +| ?>90 ?| ?Stage one ?| ? Normal ?+ ---+ ---+ -------+| ?60-89 ?| ?Stage two ?| ? Decreased GFR ? + --+ --+ ------+| ?30-59 ?| ?Stage three ?| ? Stage three ? + --+ --+ ------+| ?15-29 ?| ?Stage four ? | ? Stage four ?+ ---+ ---+ -------+| ?<15 (or dialysis) ? ?| ?Stage five ? | ? Stage five ?+ ---+ ---+ -------+ *Each stage assumes the associated GFR level has been in effect for at least three months. ?Stages 1 to 5, with or without kidney disease, indicate chronic kidney disease. Notes: Determination of stages one and two (with eGFR >59mL/min/1.73 m2) requires estimation of kidney damage for at least three months as defined by structural or functional abnormalities of the kidney, manifested by either:Pathological abnormalities or Markers of kidney damage (including abnormalities in the composition of the blood or urine or abnormalities in imaging tests). Lab Interpretation (test code = 31961-1) Abnormal [facility]. METABOLIC PANEL ([id number])2022-09-20 20:28:36* Test Item Value Reference Range Interpretation Comme nts NA (test code = 4042142544) 142 mmol/L 135-145 K (test code = 5592708671) 5.3 mmol/L 3.5-5.0 H CL (test code = 8530706960) 108 mmol/L 98-108 CO2 TOTAL (test code = 8103923349) 22 mmol/L 23-31 L AGAP (test code = 9006534815) 12 2-16 BUN (test code = 4941262091) 10 mg/dL 7-23 GLUCOSE (test code = 3775091548) 102 mg/dL 70-110 CREATININE (test code = 5425497605) 0.99 mg/dL 0.50-1.04 TOTAL BILI (test code = 9081613612) 0.9 mg/dL 0.1-1.1 CALCIUM (test code = 3117036837) 9.9 mg/dL 8.6-10.6 T PROTEIN (test code = 7366760075) 8.4 g/dL 6.3-8.2 H ALBUMIN (test code = 3503601995) 4.7 g/dL 3.5-5.0 ALK PHOS (test code = 8588251805) 88 U/L 34-122 ALTv (test code = 1742-6) 17 U/L 5-35 AST(SGOT) (test code = 9632372152) 23 U/L 13-40 eGFR (test code = 1903301653) 61.8 mL/min/1.73m2 LISANDRA (test code = LISANDRA) Association of Glomerular Filtration Rate (GFR) and Staging of Kidney Disease* + --+ --+ ------+| GFR (mL/min/1.73 m2) ?| With Kidney Damage ?| ?Without Kidney Damage+ --------+ --------+ +| ?>90 ?| ?Stage one ?| ? Normal ?+ ---+ ---+ -------+| ?60-89 ?| ?Stage two ?| ? Decreased GFR ? + --+ --+ ------+| ?30-59 ?| ?Stage three ?| ? Stage three ? + --+ --+ ------+| ?15-29 ?| ?Stage four ? | ? Stage four ?+ ---+ ---+ -------+| ?<15 (or dialysis) ? ?| ?Stage five ? | ? Stage five ?+ ---+ ---+ -------+ *Each stage assumes the associated GFR level has been in effect for at least three months. ?Stages 1 to 5, with or without kidney disease, indicate chronic kidney disease. Notes: Determination of stages one and two (with eGFR >59mL/min/1.73 m2) requires estimation of kidney damage for at least three months as defined by structural or functional abnormalities of the kidney, manifested by either:Pathological abnormalities or Markers of kidney damage (including abnormalities in the composition of the blood or urine or abnormalities in imaging tests). Lab Interpretation (test code = 30171-6) Abnormal [facility]"
[2024-04-12 03:43] LABS: Absolute Basophils 0.1 K/uL (0-0.5); Absolute Eosinophils 0.1 K/uL (0-0.5); Absolute Lymphocytes (CBC) 2.5 K/uL (0.7-4.9); Absolute Monocytes 0.6 K/uL (0.1-1.3); Basophils % 0.7 % (0-1.3); Eosinophils % 1.2 % (0-4.4); Hematocrit 36.6 % (36.0-45.0); Lymphocytes % 24.2 % (15.3-44.8); MCHC 32.8 g/dL (32.0-36.0); MCV 82.4 fL (80-100); MPV 7.5 fL (7.6-11.3); Monocytes % 6.1 % (3.3-12.3); Neutrophils % 67.8 % (41.7-73.7); Platelets 362 thou/uL (152-406); RBC Red Blood Cell Count 4.44 M/uL (3.86-4.86); Red Cell Distribution Width 17.1 % (12.1-15.2)
[2024-04-12 03:49] LABS: PT Prothrombin Time 11.7 SECONDS (9.4-12.5); PTT, Activated Partial Thromb 36.4 SECONDS (24.3-36.9); Protime INR 1.05
--- NOTE | 2024-04-12 04:25 | EDPHYS ---
Physician Documentation [facility] Name: Vernon Rodgers Age: 44 yrs Sex: Female : 1980 Arrival Date: 04/12/2024 Time: 02:42 Bed 7 Private MD: ED Physician Bakari Carpio HPI: 04/12 05:37 This 44 yrs old Black Female presents to ER via Ambulatory with complaints of Vaginal rt Bleeding. 05:37 Patient presents to the ED with vaginal bleeding. The patient's last period started at rt the beginning of the month, states that it tapered off but continues longer than his usual. She did see her [employer] who ordered an ultrasound for next week. She states that she had worsening bleeding today, passed a large clot, now only has spotting. She is not saturating pads. Denies pain, other acute complaints, symptoms are mild in severity, no other aggravating or alleviating factors.. Historical: - Allergies: 03:19 No Known Allergies; iw - Home Meds: 03:19 None [Active]; iw - PMHx: 03:19 None; iw - PSHx: 03:19 LEEP; iw - Immunization history:: Adult Immunizations not up to date. - Infectious Disease History:: Denies. - Social history:: Smoking status: Patient reports the use of cigarette tobacco products, smokes one-half pack cigarettes per day. - Family history:: not pertinent. ROS: 05:37 Constitutional: Negative for fever, chills, and weight loss, Cardiovascular: Negative rt for chest pain, palpitations, and edema, Respiratory: Negative for shortness of breath, cough, wheezing, and pleuritic chest pain, Abdomen/GI: Negative for abdominal pain, nausea, vomiting, diarrhea, and constipation, MS/Extremity: Negative for injury and deformity, Skin: Negative for injury, rash, and discoloration, 05:37 : Positive for vaginal bleeding, Negative for pelvic pain, Exam: 05:37 Constitutional: This is a well developed, well nourished patient who is awake, alert, rt and in no acute distress. Chest/axilla: Normal chest wall appearance and motion. Nontender with no deformity. No lesions are appreciated. Cardiovascular: Regular rate and rhythm with a normal S1 and S2. No gallops, murmurs, or rubs. Normal PMI, no JVD. No pulse deficits. Respiratory: Lungs have equal breath sounds bilaterally, clear to auscultation and percussion. No rales, rhonchi or wheezes noted. No increased work of breathing, no retractions or nasal flaring. Abdomen/GI: Soft, non-tender, with normal bowel sounds. No distension or tympany. No guarding or rebound. No evidence of tenderness throughout. Skin: Warm, dry with normal turgor. Normal color with no rashes, no lesions, and no evidence of cellulitis. MS/ Extremity: Pulses equal, no cyanosis. Neurovascular intact. Full, normal range of motion. Vital Signs: 03:17 BP 152 / 91; Pulse 95; Resp 16; Temp 98; Pulse Ox 100% on R/A; Weight 93.44 kg; Height iw 5 ft. 5 in. ; Pain 0/10; 03:17 Body Mass Index 34.28 (93.44 kg, 165.1 cm) iw 03:17 Pain Scale: Adult iw MDM: 03:15 Patient medically screened. rt 05:37 Differential diagnosis: Menorrhagia, fibroid. Data reviewed: vital signs, nurses notes, rt lab test result(s). Test considered but Not performed: Ultrasound H\T\H, vital signs are stable, no abdominal pain. An outpatient ultrasound is ordered for next week, there are no indications for emergent ultrasound.. Counseling: I had a detailed discussion with the patient and/or guardian regarding the historical points, exam findings, and any diagnostic results supporting the discharge/admit diagnosis, lab results, the need for outpatient follow up. 04/12 03:22 Order name: CBC with Diff; Complete Time: 03:56 rt 04/12 03:22 Order name: Test, Serum; Complete Time: 03:56 rt 04/12 03:22 Order name: PT-INR; Complete Time: 03:56 rt 04/12 03:22 Order name: Ptt, Activated; Complete Time: 03:56 rt Administered Medications: No medications were administered Disposition Summary: 04/12/24 04:24 Discharge Ordered Notes: Location: Home rt Problem: new rt Symptoms: have improved rt Condition: Stable rt Diagnosis - Menorrhagia rt Followup: rt - With: Private Physician - When: 2 - 3 days - Reason: Discharge Instructions: - Discharge Summary Sheet rt - Menorrhagia rt Forms: - Medication Reconciliation Form rt - Antibiotic Education rt - Prescription Opioid Use rt - Patient Portal Instructions rt - Leadership Thank You Letter rt Signatures: Dispatcher [employer] Savana Najera, BILLIE RN Bakari Alcazar MD MD rt
--- NOTE | 2024-04-12 04:25 | ER ---
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 Coronavirus screen: At this time, the client does not indicate any symptoms associated with coronavirus-19. Ebola Screen: No symptoms or risks identified at this time. Initial Sepsis Screen: Does the patient meet any 2 criteria? No. Patient's initial sepsis screen is negative. Does the patient have a suspected source of infection? No. Patient's initial sepsis screen is negative. Risk Assessment: Do you want to hurt yourself or someone else? Patient reports no desire to harm self or others. Onset of symptoms was April 12, 2024. 03:17 Method Of Arrival: Ambulatory iw 03:17 Acuity: ULISES 3 iw Historical: - Allergies: 03:19 No Known Allergies; iw - Home Meds: 03:19 None [Active]; iw - PMHx: 03:19 None; iw - PSHx: 03:19 LEEP; iw - Immunization history:: Adult Immunizations not up to date. - Infectious Disease History:: Denies. - Social history:: Smoking status: Patient reports the use of cigarette tobacco products, smokes one-half pack cigarettes per day. - Family history:: not pertinent. Screenin:21 [facility] ED Fall Risk Assessment (Adult) History of falling in the last 3 months, iw including since admission No falls in past 3 months (0 pts) Confusion or Disorientation No (0 pts) Intoxicated or Sedated No (0 pts) Impaired Gait No (0 pts) Mobility Assist Device Used No (0 pt) Altered Elimination No (0 pt) Score/Fall Risk Level 0 - 2 = Low Risk Oriented to surroundings, Maintained a safe environment. Abuse screen: Denies threats or abuse. Nutritional screening: No deficits noted. Tuberculosis screening: No symptoms or risk factors identified. Assessment: 03:20 General: Appears in no apparent distress. Behavior is calm, cooperative. Pain: Denies iw pain. Neuro: Level of Consciousness is awake, alert, obeys commands, Oriented to person, place, time, situation, Moves all extremities. Full function. Cardiovascular: Patient's skin is warm and dry. Respiratory: Respiratory effort is even, unlabored, Respiratory pattern is regular, symmetrical. : Reports vaginal bleeding that is bright red, with clots. Derm: Skin is intact, is healthy with good turgor. Musculoskeletal: Range of motion: intact in all extremities. Vital Signs: 03:17 BP 152 / 91; Pulse 95; Resp 16; Temp 98; Pulse Ox 100% on R/A; Weight 93.44 kg; Height iw 5 ft. 5 in. ; Pain 0/10; 03:17 Body Mass Index 34.28 (93.44 kg, 165.1 cm) iw 03:17 Pain Scale: Adult iw ED Course: 02:49 Patient arrived in ED. gm2 02:51 Bakari Carpio MD is Attending Physician. rt 03:19 Triage completed. iw 03:19 Arm band placed on. iw 03:21 Patient has correct armband on for positive identification. Provided Education on: . iw Client placed on continuous cardiac and pulse oximetry monitoring. NIBP monitoring applied. 03:50 Savana Ochoa RN is Primary Nurse. iw Administered Medications: No medications were administered Medication: 03:21 VIS not applicable for this client. iw Outcome: 04:24 Discharge ordered by . rt 04:33 Patient left the ED. iw Signatures: Savana Ochoa RN RN iw Bakari Carpio MD MD rt Susana Quiñones gm2
[2024-04-12 04:39] VITALS: BP 152/91; TEMP 98; O2SAT 100
== END 2024-04-12 04:33 | disposition home or self-care (01) ==
LOC: ER 02:42
DX: N92.0 Excessive and frequent menstruation with regular cycle (principal); F17.210 Nicotine dependence, cigarettes, uncomplicated
CPT/HCPCS: 36415; 84703; 85025; 85610; 85730; 99282